=== PATIENT | female | born 1940 | race Caucasian/White ===

== ENCOUNTER 2025-02-24 15:04 | Outpatient (REF) | payer SELFPAY ==
--- OUTSIDE RECORDS SUMMARY | 2011-04-04 06:44 | XMS_ITS | Continuity of Care Document ---
Author Organization [facility] Address [address] [address] [place] [address] Phone Care Team Providers Care Prestressed Concrete Laborer Name Role Phone Unavailable Unavailable Unavailable Advance Directives Directive Yes / No Effective Date File Name No Information Encounters Encounter Description Practice Location Reason(s) For Visit Diagnoses Date Provider Providers Copied on Encounter [facility], [address] [address], [place], [place], [id number], tel:[phone] [facility] No Information No Information Referring Provider: Louis Zayas MD R, [address] [place], [address]. tel:[phone] Family History Family Member Type Diagnosis Age At Onset No Information Payers Payer name Insurance type Covered democrat ID Authoriza tion(s) No Information Social History [...]
[2025-02-24 15:44] LABS: Appearance Urine Slightly Cloudy (Clear)
== END 2025-02-24 15:05 | disposition home or self-care (01) ==
LOC: NPINS 15:04
PROVIDERS: PCP Family Medicine; Visit Provider Nurse Practitioner Gerontology
DX: N39.0 Urinary tract infection, site not specified (principal)
CPT/HCPCS: 81001; 81003; 87086

== ENCOUNTER 2025-04-25 13:10 | Outpatient (REF) | payer SELFPAY ==
--- OUTSIDE RECORDS SUMMARY | 2011-04-04 05:44 | XMS_ITS | Continuity of Care Document ---
Author Organization [facility] Address [address] [address] [place] [address] Phone Care Team Providers Care Superintendent Nonselling Name Role Phone Unavailable Unavailable Unavailable Advance Directives Directive Yes / No Effective Date File Name No Information Encounters Encounter Description Practice Location Reason(s) For Visit Diagnoses Date Provider Providers Copied on Encounter [facility], [address] [address], [place], [place], [id number], tel:[phone] [facility] No Information No Information Referring Provider: Louis Zayas MD [address], [address] [place], [address]. tel:[phone] Family History Family Member Type Diagnosis Age [...]
[2025-04-25 14:52] LABS: PCR FLU A Negative PCR FLU A (Negative); PCR FLU B Negative PCR FLU B (Negative); PCR RSV Negative PCR RSV (Negative); SARS PCR* Negative SARS-CoV-2 (Negative)
== END 2025-04-25 13:11 | disposition home or self-care (01) ==
LOC: NPINS 13:10
PROVIDERS: PCP Family Medicine; Visit Provider Nurse Practitioner Gerontology
DX: J11.1 Influenza due to unidentified influenza virus with other respiratory manifestations (principal)
CPT/HCPCS: 87631; 87804; 87807

== ENCOUNTER 2025-04-26 12:45 | Outpatient (CLI) | payer MEDICARE, BC, SELFPAY | END 2025-04-26 12:46 | disposition home or self-care (01) | LOC: AMB 04-30 13:51 | PROVIDERS: PCP Family Medicine; Visit Provider Family Medicine | DX: R11.2 Nausea with vomiting, unspecified (principal) | CPT/HCPCS: A0425; A0429 ==

== ENCOUNTER 2025-04-26 13:06 | Inpatient (IN) | payer MEDICARE, BC, SELFPAY ==
--- OUTSIDE RECORDS SUMMARY | 2011-04-04 05:44 | XMS_ITS | Continuity of Care Document ---
Author Organization [facility] Address [address] [address] [place] [address] Phone Care Team Providers Care Contract Assistant Name Role Phone Unavailable Unavailable Unavailable Advance Directives Directive Yes / No Effective Date File Name No Information Encounters Encounter Description Practice Location Reason(s) For Visit Diagnoses Date Provider Providers Copied on Encounter [facility], [address] [address], [place], [place], [id number], tel:[phone] [facility] No Information No Information Referring Provider: Louis Zayas MD R, [address] [place], [address]. tel:[phone] Family History Family Member Type Diagnosis Age At Onset No Information Payers Payer name Insurance type Covered republican ID Authoriza tion(s) No Information Social History Type Description Quantity Date Captured Comments Sex Female Smoking Status No Information Chief Complaint And Reason For Visit No Information Reason For Referral Reason For Referral No Information History Of Present Illness Encounter Date Complaint History Of Prese nt Illness No Information Functional Status Date Functional Assessmen t No Information Instructions Date Instruction Additional Infor mation No Information Assessments Type Assessment Date No Information Patient Care Teams Name Effective Dates (start - stop) Status Members No Information
[2025-04-26] VITALS (37 sets, daily range): BP systolic 139–163; BP diastolic 72–84; PULSE 118–133; RESP 13–57; TEMP 36.8–37.2; O2SAT 79–100; BMI 25.5; BMI 23.6
--- NOTE | 2025-04-26 13:24 | ED_ITS ---
HPI - General Adult General Chief complaint: Nausea/Vomiting Stated complaint: Nausea/Vomiting Time Seen by Provider: 04/26/25 13:16 History of Present Illness HPI narrative: pt. stayed in bed since Friday. Today providers saw her and asked that she be transported to us for concerns of dehydration and infection. she has had n /v since Friday . Last emesis at 0900. Pt. is also weaker than usual. Son will be here at 4pm. Pt, has a polst . She fesused an iv and fluids for ems and now she is agreeable 84-year-old woman presenting to the emergency department with concern of dehydration and infection. She is not sure why she is here actually when I ask. Just does not feel good. Denies any pain until I palpate her abdomen. Has been vomiting. No noted diarrhea. She is noted to be more weak. Four days of symptoms. 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 Was to be on dual antiplatelet therapy. Was rehabbed at [facility] from January 27 to February 17. Struggled with intermittent agitation aggression during that time. Son reports that this agitation and aggression worsened markedly since her CVA. 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 Pantoprazole Acetaminophen Senna Levothyroxine Rosuvastatin Tramadol Sitagliptin Aspirin Nicotine patch Sertraline Donepezil Mirtazapine Melatonin Tramadol I see clopidogrel on 1 medication list but not on the other Exam Narrative: Exam Narrative: Intermittently pleasant. Intermittently quite disagreeable and cursing and striking out. Appears to forget after about 2-3 minutes repeatedly. She does have some congested breathing. Moderately labored. Moving good air. No wheeze. Oropharynx and lips are quite dry. Abdomen is soft and extremely tender in the mid abdomen which seems to be a surprise to her. She has large surgical scars abdomen. Bowel sounds are present. Heart in tachycardic rate and regular rhythm I think. Limited movement to bilateral lower extremities. Trace non pitting edema. Roshni did report to her son that she had had a bowel movement. We took this is an opportunity to examine her back and buttock area. There was no bowel movement. There was barrier cream in place. Moderate erythema broadly over the perianal and perineal area. No ulcerations noted. Const: Vital Signs, click to edit/add: Vital Signs - 24 hr 04/26/25 13:11 04/26/25 13:12 04/26/25 13:13 Temperature 98.9 F Pulse Rate 133 H 129 H Pulse Rate [Right Radial] 125 H Respiratory Rate 32 H 22 24 Blood Pressure 161/79 H Blood Pressure [Ri ght Upper Arm] 161/79 H Pulse Oximetry 94 92 93 Oxygen Delivery Me od Room Air 04/26/25 13:15 04/26/25 13:30 04/26/25 13:45 Temperature Pulse Rate 130 H 121 H Pulse Rate [Right Radial] Respiratory Rate 18 21 22 Blood Pressure Blood Pressure [Ri ght Upper Arm] Pulse Oximetry 93 79 L 87 L Oxygen Delivery Ri thod 04/26/25 13:55 04/26/25 14:00 04/26/25 14:15 Temperature Pulse Rate 129 H Pulse Rate [Right Radial] Respiratory Rate 26 H 32 H Blood Pressure Blood Pressure [Ri ght Upper Arm] Pulse Oximetry 91 89 Oxygen Delivery Ri thod 04/26/25 14:27 04/26/25 14:30 04/26/25 14:45 Temperature Pulse Rate Pulse Rate [Right Radial] Respiratory Rate 15 24 21 Blood Pressure 146/77 H Blood Pressure [Ri ght Upper Arm] Pulse Oximetry Oxygen Delivery Me thod 04/26/25 15:00 04/26/25 15:15 04/26/25 15:30 Temperature Pulse Rate 128 H Pulse Rate [Right Radial] Respiratory Rate 23 13 28 H Blood Pressure Blood Pressure [Ri ght Upper Arm] Pulse Oximetry 97 Oxygen Delivery Me thod 04/26/25 15:45 04/26/25 16:00 04/26/25 16:15 Temperature Pulse Rate 129 H Pulse Rate [Right Radial] Respiratory Rate 30 H 31 H 18 Blood Pressure Blood Pressure [Ri ght Upper Arm] Pulse Oximetry 96 Oxygen Delivery Me thod 04/26/25 16:30 04/26/25 16:45 04/26/25 17:00 Temperature Pulse Rate Pulse Rate [Right Radial] Respiratory Rate 13 25 H 22 Blood Pressure Blood Pressure [Ri ght Upper Arm] Pulse Oximetry Oxygen Delivery Me thod 04/26/25 17:15 04/26/25 17:30 04/26/25 17:31 Temperature Pulse Rate Pulse Rate [Right Radial] Respiratory Rate 20 20 20 Blood Pressure 163/84 H Blood Pressure [Ri ght Upper Arm] Pulse Oximetry Oxygen Delivery Me thod 04/26/25 18:15 04/26/25 18:30 04/26/25 18:47 Temperature Pulse Rate 122 H 122 H 119 H Pulse Rate [Right Radial] Respiratory Rate 36 H 18 25 H Blood Pressure Blood Pressure [Ri ght Upper Arm] Pulse Oximetry 98 95 93 Oxygen Delivery Me thod 04/26/25 19:00 04/26/25 19:15 04/26/25 19:30 Temperature Pulse Rate 118 H 122 H 123 H Pulse Rate [Right Radial] Respiratory Rate 19 24 57 H Blood Pressure Blood Pressure [Ri ght Upper Arm] Pulse Oximetry 91 95 93 Oxygen Delivery Me thod 04/26/25 19:45 04/26/25 20:41 04/26/25 21:00 Temperature Pulse Rate 126 H 123 H 122 H Pulse Rate [Right Radial] Respiratory Rate 19 19 20 Blood Pressure 139/72 Blood Pressure [Ri ght Upper Arm] Pulse Oximetry 95 94 94 Oxygen Delivery Me thod 04/26/25 21:15 04/26/25 21:30 04/26/25 22:00 Temperature Pulse Rate 122 H 122 H 119 H Pulse Rate [Right Radial] Respiratory Rate 14 14 18 Blood Pressure Blood Pressure [Ri ght Upper Arm] Pulse Oximetry 97 95 100 Oxygen Delivery Me thod Documenting provider has reviewed patient's vital signs: yes Course Vital Signs Vital signs: Initial Vital Signs Temperature 98.9 F 04/26/25 13:11 Temperature Source Temporal Artery Scan 04/26/25 13:11 Pulse Rate 125 H 04/26/25 13:11 Pulse Rhythm Regular 04/26/25 13:11 Respiratory Rate 32 H 04/26/25 13:11 Blood Pressure 161/79 H 04/26/25 13:11 Blood Pressure Mean 106 H 04/26/25 13:11 Pulse Oximetry 94 04/26/25 13:11 Oxygen Delivery Method Room Air 04/26/25 13:11 Vital Signs Temperature 98.9 F 04/26/25 13:11 Pulse Rate 125 H 04/26/25 13:11 Respiratory Rate 32 H 04/26/25 13:11 Blood Pressure 161/79 H 04/26/25 13:11 Pulse Oximetry 94 04/26/25 13:11 Oxygen Delivery Method Room Air 04/26/25 13:11 Temperature 98.9 F 04/26/25 13:11 Pulse Rate 119 H 04/26/25 22:00 Respiratory Rate 18 04/26/25 22:00 Blood Pressure 139/72 04/26/25 20:41 Pulse Oximetry 100 04/26/25 22:00 Oxygen Delivery Method Room Air 04/26/25 13:11 Medications Administered Medications: Generic Name Dose Route Start Last Admin Trade Name Freq PRN Reason Stop Dose Admin Meropenem 1 gm/ Sodium 100 mls @ 200 mls/hr 04/26/25 21:06 04/26/25 22:05 Chloride IVPB 04/26/25 21:07 Infused ONCE ONE Infusion Discontinued Medications Generic Name Dose Route Start Last Admin Trade Name Freq PRN Reason Stop Dose Admin Diazepam 5 mg 04/26/25 16:00 04/26/25 16:07 Diazepam 5 Mg/Ml Inj IM 04/26/25 16:01 5 mg ONCE ONE Administration Sodium Chloride 1,000 mls @ 1,000 mls/hr 04/26/25 13:48 04/26/25 18:35 0.9 % Sodium Chloride 1000 Ml IV 04/26/25 14:47 Infused .Q1H ONE Infusion Sodium Chloride 1,000 mls @ 1,000 mls/hr 04/26/25 19:51 04/26/25 20:37 0.9 % Sodium Chloride 1000 Ml IV 04/26/25 20:50 1,000 mls/hr .Q1H ONE Administration Morphine Sulfate 2 mg 04/26/25 13:48 04/26/25 17:47 Morphine 2 Mg/Ml Inj IVP 04/26/25 13:49 2 mg ONCE ONE Administration Ondansetron HCl 4 mg 04/26/25 13:55 04/26/25 17:27 Ondansetron 2 Mg/Ml Inj IVP 04/26/25 13:56 4 mg ONCE ONE Administration Medical Decision Making MDM Narrative Medical decision making narrative: Does appear quite fatigued and I think dry. Understand that there is a history of systolic heart failure but I do think she is going to need some fluids regardless. She is tachycardic. This may represent sepsis. Density abdominal pain along with vomiting and in lieu of visible scars, would have concerns about small-bowel obstruction. May have aspirated and I would anticipate chest x-ray. Significant difficulty given dementia and agitation, striking out and swearing at staff, including attempting to bite me, and I think dry state challenging placement of an IV and to obtain labs. This also has delayed other cares. Will also need abdominal imaging at a minimum. Pending creatinine to receive IV contrast. Which is pending IV placement I did discuss with son as he is power of stationary engineer apprentice about sedation. We did give 5 mg of diazepam which, in addition to Anesthesia assistance, finally allowed for placement of a tentative IV. Were not able to draw blood off of this. Hydrating with the hope of placing another IV. One-view portable chest x-ray independently reviewed by me is without clear infiltrate though looks a little hazy in the left lower lung. Radiology over-read below suggest no pneumonia. INDICATION: : CHEST CONGESTION COMPARISON: None TECHNIQUE: One view(s) of the chest FINDINGS: The cardiomediastinal silhouette and pulmonary vasculature are unremarkable. There is no focal airspace consolidation, pleural effusion, or pneumothorax. No displaced fractures. IMPRESSION: No acute cardiopulmonary process. Dictated by Sanjiv Miguel MD @ 04/26/2025 3:17:14 PM In the interest of time finally decided to proceed with CT imaging without contrast. INDICATION: Mid abdominal pain, vomiting TECHNIQUE: CT chest, abdomen and pelvis acquired without contrast. COMPARISON: Same day chest radiograph. FINDINGS: CHEST: Cardiovascular structures: Heart size is normal. Thoracic aorta and main pulmonary artery are normal in caliber. Severe coronary artery calcifications. Mitral annular calcifications. Diffuse atherosclerotic calcification of the aorta and branches. Mediastinum and mirela: No mass or adenopathy. Prominent precarinal lymph node, possibly reactive. Lungs and pleura: Scattered pulmonary nodules are present, including a solid subpleural nodule in the anterior left upper lobe measuring 4 millimeters in size (series 3, image 29). Subpleural reticulation is present bilaterally, possibly reflecting underlying fibrosis. Dependent atelectasis. No pleural effusion or pneumothorax. Chest wall and axilla: No mass or adenopathy. Bones: No acute or suspicious osseous abnormality. ABDOMEN AND PELVIS: Liver: Unremarkable. Gallbladder and bile ducts: Prior cholecystectomy. Prominent extrahepatic bile ducts likely secondary to post cholecystectomy reservoir effect. Pancreas: Mild fatty infiltration. No peripancreatic inflammation. Spleen: Nonenlarged. Probable calcified granulomas. Adrenal glands: Thickened left adrenal gland without discrete nodule. Kidneys: Mildly atrophic in appearance. No hydronephrosis. GI tract: Multiple mildly prominent gas and fluid-filled loops of small bowel are present. There are fecalized contents within several loops of small bowel. No transition point seen. Colonic diverticulosis without acute diverticulitis. Vascular structures: Ectasia of the infrarenal abdominal aorta measuring approximally 2.7 centimeters in maximum dimension. Diffuse atherosclerotic disease. Lymph nodes: Unremarkable. Miscellaneous: Moderate-sized fat containing umbilical hernia. Soft tissue calcifications along the lower anterior abdominal wall and within the right gluteal subcutaneous tissues. No free air or significant free fluid. Pelvic Organs: Left bladder diverticulum. Bones: No acute or suspicious osseous abnormality. IMPRESSION: 1. Multiple prominent loops of small bowel are present, nondilated by size criteria and without evident transition point. Fecalized contents are present within a few small bowel loops consistent with slow intestinal transit. Findings may reflect ileus, but early partial small bowel obstruction is not excluded. 2. Incidental pulmonary nodules measuring up to 4 millimeters in size, which could be followed with optional CT chest without contrast in 12 months if the patient is at high risk of malignancy. Please note that all CT scans at this facility use dose modulation, iterative reconstruction, and/or weight-based dosing when appropriate to reduce radiation dose to as low as reasonably achievable. Dictated by Erica Berumen MD @ 04/26/2025 7:13:53 PM Later I received labs that were look like done earlier today with a white count of 29,000. Creatinine of 2.6 Lactate done here today along with this white count earlier today and the tachycardia would meet sepsis criteria. There was report of a urinalysis that had been done but have not been able to locate this yet. Will be catheterizing. Roshni will not allow maintenance of urinary catheter or NG tube if necessary. Meningitis also is in differential as source however I suspect would require heavy sedation to accomplish tap. Probably better to consider treating empirically. Not complaining of headache and tolerates sitting and movement of neck. Still no source of suspected infection. With tentative line and desire yet to start antibiotics I'd like to consider placing a 2nd line. Son notes allergy to penicillin. With add on after re draws of blood, troponin does return elevated at 0.32. Partial demand ischemia? Remains with good blood pressures and tachycardic. She has not demonstrated septic shock. Would qualify actually as severe sepsis in spite of chronically elevated creatinine; was initially tachypneic. Ischemic gut? though with minimal lactate elevation and relatively normal bicarb. Have requested more fluids however son is resistant to this since Roshni does have a diagnosis of heart failure. I think however though remains dry and sepsis still the concern. No prior ECHO available now. On reassessment is much more calm. Heart rate now in the 1 teens. She is breathing more calmly. Is more persistently pleasant. I think IV hydration and combination diazepam and morphine has been quite helpful. Did discuss with hospitalist as well as General surgery anticipating potential admission. Clearly is very sick. If surgery is still a consideration would need transfer. I have spent a long time discussing options of care with Roshni and her son. They maintain DNR/DNI and limited interventions. Uncertain interest in surgery. Would not want any cardiac interventions. Roshni has told her son that she would like to recently. Records from [facility] indicate significant frustration, disappointment with current life. I spoke again with beck Trejo over the phone, and in person with grandbeck Mark and with Roshni. She is quite lucid I think right now and is quite insistent that she would not want any surgical intervention of any kind; answers no repeatedly. Is not interested in aggressive measures like pressors is my understanding but would except IV antibiotics and fluids and pain medication. Son is returning for in person discussion. Sat down with beck Trejo and Roshni and hospitalist to confirm desired limits of care. Will continue with IV fluids and antibiotics and, what is particularly important to Roshni, that she be comfortable. Pending admission to this facility. Medical Records Medical records reviewed: Yes I reviewed the patient's medical records Lab Data Lab results reviewed: Yes I reviewed the patient's lab results Labs: Lab Results 04/26/25 04/26/25 04/26/25 Range/Units 17:26 19:20 19:38 WBC 28.64 H* (4.50-11.00) K/uL RBC 4.03 (4.00-5.20) m/uL Hgb 13.0 (12.0-16.0) gm/dL Hct 40.2 (33.0-51.0) % MCV 100 (80-100) fL MCH 32 (26-34) pg MCHC 32 (32-36) gm/dL RDW Coeff of Dipti 18.1 H (11.5-15.5) % Plt Count 371 (140-440) K/uL Neut % (Auto) 86.3 H (42.0-72.0) % Lymph % (Auto) 7.3 L (20-44) % [place] % (Auto) 5.3 (0.0-11.0) % Eos % (Auto) 0.0 (0.0-7.0) % Baso % (Auto) 0.0 (0.0-3.0) % Neut # (Auto) 24.70 H (1.7-7.0) K/uL Lymph # (Auto) 2.10 (0.90-2.90) K/uL [place] # (Auto) 1.50 H (0.00-0.90) K/UL Eos # (Auto) 0.00 (0.00-0.50) K/uL Baso # (Auto) 0.00 (0.00-0.30) K/uL Abs Immat Gran (auto) 0.30 (0.00-0.30) K/uL Imm/Tot Granulo (auto) 1.1 % Diff Slide Review Acceptable Review (Acceptable) VBG pH 7.355 (7.32-7.43) VBG pCO2 31 L (40-50) mmHG VBG pO2 44.6 (25-47) mmHG VBG HCO3 17 L (21-28) mmol/L Sodium 142 (135-149) mmol/L Potassium 5.1 (3.6-5.1) mmol/L Chloride 111 (96-114) mmol/L Carbon Dioxide 16 L (20-32) mmol/L Anion Gap 15 (7-15) mEq/L BUN 48 H (7-30) mg/dL Creatinine 2.5 H (0.5-1.5) mg/dL Estimated Creat Clear 12.64 Estimated GFR 19 ml/min Glucose 129 H (60-115) mg/dL Lactate 2.3 H (0.5-1.9) mmol/L Calcium 9.0 (8.4-10.6) mg/dL Troponin I 0.32 H* (0.01-0.04) ng/mL C-Reactive Protein 20.3 H (0.5-1.0) mg/dL Urine Color Yellow (Yellow) Urine Appearance Clear (Clear) Urine pH 5.0 (5.0-8.5) Ur Specific [place] >= 1.030 (1.000-1.030) Urine Protein 1+ A (Negative) Urine Glucose (UA) Negative (Negative) Urine Ketones Negative (Negative) Urine Blood Negative (Negative) Urine Nitrite Negative (Negative) Urine Bilirubin 1+ A (Negative) Urine Urobilinogen 0.2 (0.2-1.0) Ur Leukocyte Esterase Negative (Negative) Urine RBC 2-5 A (0-2) Urine WBC 2-5 (0-5) Ur Squamous Epith Cells Few (None-Few) Urine Bacteria Moderate A (None) SARS-CoV-2 (PCR) (Negative) Influenza Type A (PCR) (Negative) Influenza Type B (PCR) (Negative) RSV (PCR) (Negative) Lab Acknowledgement 04/26/25 04/26/25 04/26/25 Range/Units 19:50 20:27 21:15 WBC (4.50-11.00) K/uL RBC (4.00-5.20) m/uL Hgb (12.0-16.0) gm/dL Hct (33.0-51.0) % MCV (80-100) fL MCH (26-34) pg MCHC (32-36) gm/dL RDW Coeff of Dipti (11.5-15.5) % Plt Count (140-440) K/uL Neut % (Auto) (42.0-72.0) % Lymph % (Auto) (20-44) % [place] % (Auto) (0.0-11.0) % Eos % (Auto) (0.0-7.0) % Baso % (Auto) (0.0-3.0) % Neut # (Auto) (1.7-7.0) K/uL Lymph # (Auto) (0.90-2.90) K/uL [place] # (Auto) (0.00-0.90) K/UL Eos # (Auto) (0.00-0.50) K/uL Baso # (Auto) (0.00-0.30) K/uL Abs Immat Gran (auto) (0.00-0.30) K/uL Imm/Tot Granulo (auto) % Diff Slide Review (Acceptable) VBG pH (7.32-7.43) VBG pCO2 (40-50) mmHG VBG pO2 (25-47) mmHG VBG HCO3 (21-28) mmol/L Sodium (135-149) mmol/L Potassium (3.6-5.1) mmol/L Chloride (96-114) mmol/L Carbon Dioxide (20-32) mmol/L Anion Gap (7-15) mEq/L BUN (7-30) mg/dL Creatinine (0.5-1.5) mg/dL Estimated Creat Clear Estimated GFR ml/min Glucose (60-115) mg/dL Lactate 1.3 (0.5-1.9) mmol/L Calcium (8.4-10.6) mg/dL Troponin I 0.33 H* (0.01-0.04) ng/mL C-Reactive Protein (0.5-1.0) mg/dL Urine Color (Yellow) Urine Appearance (Clear) Urine pH (5.0-8.5) Ur Specific [place] (1.000-1.030) Urine Protein (Negative) Urine Glucose (UA) (Negative) Urine Ketones (Negative) Urine Blood (Negative) Urine Nitrite (Negative) Urine Bilirubin (Negative) Urine Urobilinogen (0.2-1.0) Ur Leukocyte Esterase (Negative) Urine RBC (0-2) Urine WBC (0-5) Ur Squamous Epith Cells (None-Few) Urine Bacteria (None) SARS-CoV-2 (PCR) Negative SARS-CoV-2 (Negative) Influenza Type A (PCR) Negative PCR FLU A (Negative) Influenza Type B (PCR) Negative PCR FLU B (Negative) RSV (PCR) Negative PCR RSV (Negative) Lab Acknowledgement Test Added ECG Data Attestation: I personally reviewed and interpreted this ECG as follows: (Sinus tachycardia. Rate of 129. Leads [address] depression. Lateral leads V5 and V6 with similar. No prior for comparison.) Critical Care Time Critical Care Time Critical Care Time: Yes Attestation: The patient required my highest level preparedness to intervene emergently and I personally spent this critical care time directly and personally managing the patient. This critical care time included: Obtaining a history; Examining the patient; Pulse oximetry; Ordering and reviewing of studies; Arranging urgent treatment with development of a management plan; Evaluation of patients response to treatment; Frequent reassessment discussions with other providers. This critical care time was performed to assess and manage the high probability of imminent life-threatening deterioration that could result in multiorgan failure. It was exclusive of separate billable procedures and treating other patients and teaching time. Total Critical Care Time in Minutes: 120 Discharge Plan Discharge Clinical Impression: Sepsis, Acute abdomen Patient Disposition: Admitted As Inpatient Condition: Guarded Procedures ABG Interpretation ABG Results: 04/26/25 17:26 VBG pH 7.355 VBG pCO2 31 L VBG pO2 44.6 VBG HCO3 17 L
--- NOTE | 2025-04-26 13:48 | CRLHL7_ITS ---
For Patients: As a result of the Cures Act, medical imaging exams and procedure reports are released immediately into your electronic medical record. You may view this report before your referring provider. If you have questions, please contact your health care provider. INDICATION: : CHEST CONGESTION COMPARISON: None TECHNIQUE: One view(s) of the chest FINDINGS: The cardiomediastinal silhouette and pulmonary vasculature are unremarkable. There is no focal airspace consolidation, pleural effusion, or pneumothorax. No displaced fractures. IMPRESSION: No acute cardiopulmonary process. Dictated by Sanjiv Miguel MD @ 04/26/2025 3:17:14 PM (Electronically Signed)
--- NOTE | 2025-04-26 13:48 | CRLHL7_ITS ---
For Patients: As a result of the Century Cures Act, medical imaging exams and procedure reports are released immediately into your electronic medical record. You may view this report before your referring provider. If you have questions, please contact your health care provider. INDICATION: Mid abdominal pain, vomiting TECHNIQUE: CT chest, abdomen and pelvis acquired without contrast. COMPARISON: Same day chest radiograph. FINDINGS: CHEST: Cardiovascular structures: Heart size is normal. Thoracic aorta and main pulmonary artery are normal in caliber. Severe coronary artery calcifications. Mitral annular calcifications. Diffuse atherosclerotic calcification of the aorta and branches. Mediastinum and mirela: No mass or adenopathy. Prominent precarinal lymph node, possibly reactive. Lungs and pleura: Scattered pulmonary nodules are present, including a solid subpleural nodule in the anterior left upper lobe measuring 4 millimeters in size (series 3, image 29). Subpleural reticulation is present bilaterally, possibly reflecting underlying fibrosis. Dependent atelectasis. No pleural effusion or pneumothorax. Chest wall and axilla: No mass or adenopathy. Bones: No acute or suspicious osseous abnormality. ABDOMEN AND PELVIS: Liver: Unremarkable. Gallbladder and bile ducts: Prior cholecystectomy. Prominent extrahepatic bile ducts likely secondary to post cholecystectomy reservoir effect. Pancreas: Mild fatty infiltration. No peripancreatic inflammation. Spleen: Nonenlarged. Probable calcified granulomas. Adrenal glands: Thickened left adrenal gland without discrete nodule. Kidneys: Mildly atrophic in appearance. No hydronephrosis. GI tract: Multiple mildly prominent gas and fluid-filled loops of small bowel are present. There are fecalized contents within several loops of small bowel. No transition point seen. Colonic diverticulosis without acute diverticulitis. Vascular structures: Ectasia of the infrarenal abdominal aorta measuring approximally 2.7 centimeters in maximum dimension. Diffuse atherosclerotic disease. Lymph nodes: Unremarkable. Miscellaneous: Moderate-sized fat containing umbilical hernia. Soft tissue calcifications along the lower anterior abdominal wall and within the right gluteal subcutaneous tissues. No free air or significant free fluid. Pelvic Organs: Left bladder diverticulum. Bones: No acute or suspicious osseous abnormality. IMPRESSION: 1. Multiple prominent loops of small bowel are present, nondilated by size criteria and without evident transition point. Fecalized contents are present within a few small bowel loops consistent with slow intestinal transit. Findings may reflect ileus, but early partial small bowel obstruction is not excluded. 2. Incidental pulmonary nodules measuring up to 4 millimeters in size, which could be followed with optional CT chest without contrast in 12 months if the patient is at high risk of malignancy. Please note that all CT scans at this facility use dose modulation, iterative reconstruction, and/or weight-based dosing when appropriate to reduce radiation dose to as low as reasonably achievable. Dictated by Erica Berumen MD @ 04/26/2025 7:13:53 PM (Electronically Signed)
[2025-04-26] MEDS: diazePAM 5 MG/ML inj IM (16:07)
[2025-04-26] MEDS: ONDANSETRON 2 MG/ML inj 4 MG IVP (17:27)
[2025-04-26 17:31] LABS: HCO3 VBG 17 mmol/L (21-28); PCO2 VBG 31 mmHG (40-50); PO2 VBG 44.6 mmHG (25-47); pH VBG 7.355 (7.32-7.43)
[2025-04-26 17:33] LABS: Lactate* 2.3 mmol/L (0.5-1.9)
[2025-04-26 18:24] LABS: Chloride* 111 mmol/L (96-114)
[2025-04-26 18:25] LABS: Potassium* 5.1 mmol/L (3.6-5.1); Sodium* 142 mmol/L (135-149)
[2025-04-26 18:28] LABS: Anion Gap 15 mEq/L (7-15); Blood Urea Nitrogen* 48 mg/dL (7-30); Calcium* 9.0 mg/dL (8.4-10.6); Carbon Dioxide* 16 mmol/L (20-32); Creatinine* 2.5 mg/dL (0.5-1.5); Est. Creatinine Clearance* 12.64; Estimated Glomerular Filt Rate 19 ml/min; Glucose* 129 mg/dL (60-115)
[2025-04-26 19:41] LABS: Hematocrit* 40.2 % (33.0-51.0); Hemoglobin* 13.0 gm/dL (12.0-16.0); Immature Granulocytes Abs Auto 0.30 K/uL (0.00-0.30); Immature Granulocytes Pct Auto 1.1 %; Lymphocytes Absolute Auto 2.10 K/uL (0.90-2.90); Mean Corpuscular HGB Conc 32 gm/dL (32-36); Mean Corpuscular Hemoglobin 32 pg (26-34); Mean Corpuscular Volume 100 fL (80-100); RDW Coefficient of Variation % 18.1 % (11.5-15.5); Red Blood Count* 4.03 m/uL (4.00-5.20); Slide Review Reflex Yes
[2025-04-26 19:42] LABS: Appearance Urine Clear (Clear)
[2025-04-26 19:42] LABS: White Blood Count* 28.64 K/uL (4.50-11.00)
[2025-04-26 20:20] LABS: Slide Review Acceptable Review (Acceptable)
[2025-04-26 21:18] LABS: Lactate* 1.3 mmol/L (0.5-1.9)
[2025-04-26] MEDS: MEROPENEM 1 GM in 0.9 % SODIUM CHLORIDE Mini-bag 100 ML IVPB (21:29)
[2025-04-26 21:32] LABS: PCR FLU A Negative PCR FLU A (Negative); PCR FLU B Negative PCR FLU B (Negative); PCR RSV Negative PCR RSV (Negative); SARS PCR* Negative SARS-CoV-2 (Negative)
--- NOTE | 2025-04-26 23:01 | P.IMHP_ITS ---
Assessment and Plan Assessment and plan (1) Sepsis: Problem comment: -leukocytosis with left shift, WBC 28.64, lactate 2.3 -> 1.3 following IVF, tachycardic, tachypneic, afebrile -suspect acute abdomen as source -CT/CXR without evidence of acute pulmonary process, triple swab negative, UA rather unremarkable, UC pending, BC x1 pending -son and patient have elected to continue IV antibiotics, IVF, pain management, monitoring for improvement, may elect to proceed with comfort cares if no impr ovement or worsening -no pressors or ICU level cares desired. Only have one peripheral hand IV after several attempts at others Status: Acute (2) Acute abdomen: Problem comment: -abdominal pain with nausea and vomiting for 4-5 days -CT shows Multiple prominent loops of small bowel are present, nondilated by size criteria and without evident transition point. Fecalized contents are present within a few small bowel loops consistent with slow intestinal transit. Findings may reflect ileus, but early partial small bowel obstruction is not excluded -leukocytosis with left shift, elevated CRP -discussed with General surgery, recommending transfer if surgical intervention desired by patient and family -discussion with patient, son, Neil, ED provider, Dr. Rajan, all in attendance. Patient verbalizes she would not want surgical intervention. Son verbalizes that she has said this in the past as well and confirms she would not want surgery. Discussed management options including admission for IV antibiotics, IV fluids, bowel rest, monitoring for new or worsening symptoms. Son and patient in agreement. If new or worsening symptoms, as discussed, we would consider proceeding with comfort cares -general surgery consult in a.m., Dr. Alonzo aware Status: Acute (3) Vomiting: Problem comment: -reported last episode 0900 04/26 Status: Acute (4) CKD stage 3b, GFR 30-44 ml/min: Problem comment: -baseline creatinine based on limited EMR data, 1.3-1.4 Status: Acute (5) RC (acute kidney injury): Problem comment: -creatinine 2.5 -avoid nephrotoxic medications, renally dose IV antibiotics, continue IVF, rec heck in a.m. Status: Acute (6) Type 2 diabetes mellitus: Problem comment: -most recent A1c 5.7 -hold sitagliptin while NPO -glucose checks and insulin sliding scale ACHS Status: Acute (7) Hyperlipidemia: Problem comment: -hold statin for now Status: Acute (8) Hypertension: Problem comment: -pressure is adequate in setting of sepsis -hold home meds for now Status: Acute (9) Vascular dementia: Problem comment: -with increased agitation following CVA in January -continue home medications -Haldol p.r.n. Son, Neil, states patient has a POLST (reviewed) but no healthcare directive. We discussed that with her state of vascular dementia, as next of kin, he will need to help make decisions for her during this hospitalization as her understanding and comprehension as well as ability to retain the information t hat is provided to her is limited. He verbalizes understanding. As documented above, with myself and ED provider in attendance, plan is made for nonsurgical intervention, trial of IV antibiotics, monitoring, and possibly pursuing comfort cares if no improvement or worsening noted. Status: Acute (10) Systolic congestive heart failure: Problem comment: -monitor for fluid overload in management of sepsis Status: Acute (11) Elevated troponin: Problem comment: -troponin 0.33 -> 0.32 -has been tachycardic since arrival in ED, EKG showing sinus tachycardia -son wants no further cardiac interventions Status: Acute (12) Pulmonary nodules: Problem comment: -incidental finding, CT shows Incidental pulmonary nodules measuring up to 4 millimeters in size, which could be followed with optional CT chest without contrast in 12 months if the patient is at high risk of malignancy. Status: Acute Total Time Spent Total Time Spent: Today I spent 90 minutes seeing the patient, reviewing [facility] and EPIC notes /diagnostics, discussing the care plan with our care time that includes social work, PT/OT, pharmacy, RT, retirement and documenting my impressions and plan in the medical record. 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 Patient is seen in the ED with son and ED provider at bedside. Patient is a poor historian. Reported that patient has had nausea with vomiting and abdominal pain since Friday of last week. Last emesis was 9:00 a.m. this morning. Unknown last BM. No reported fevers. In ED, patient reported to be not fully cooperative. Has taken some time to get IV access, labs, initiation of IV fluids and antibiotics. Significant leukocytosis noted with questionable small-bowel obstruction. ED provider discussed with General surgery, concern for ischemia, significant bowel infection. Would recommend transfer for any sort of surgical intervention. In discussing options with son, he tells us his mother would have never wanted surgical intervention. When asked herself, she says ?no? to surgery. Decision is made for admission for IV antibiotics, IV fluids, bowel rest. We did discuss comfort cares if new or worsening symptoms which son is in agreement with if necessary. There is very limited EMR information available as son reports most of care has been done in the [facility] system. Outside resources are limited to information sent by [facility]. Review of Systems Narrative: REVIEW OF SYSTEMS: Complete review of systems performed and negative unless otherwise stated in HPI or below. Medical Decision Making Medical Decision Making Code Status: DNR/DNI During This Stay, Who Would You Like To Make Decisions For You In The Event You Are Unable To Make Them For Yourself?: Neil Bishop [facility] Medical History Asthma ?J45.909 - Unspecified asthma, uncomplicated (ICD-10) Systolic congestive heart failure ?I50.20 - Unspecified systolic (congestive) heart failure (ICD-10) Atherosclerotic heart disease of [place] coronary artery without angina pectoris ?I25.10 - Atherosclerotic heart disease of [place] coronary artery without angina pectoris (ICD-10) Nicotine dependence ?F17.200 - Nicotine dependence, unspecified, uncomplicated (ICD-10) Anemia ?D64.9 - Anemia, unspecified (ICD-10) Aphasia following cerebrovascular accident (CVA) ?I69.320 - Aphasia following cerebral infarction (ICD-10) Hemiplegia and hemiparesis following cerebral infarction affecting right dominant side ?I69.351 - Hemiplegia and hemiparesis following cerebral infarction affecting right dominant side (ICD-10) Vascular dementia ?F01.50 - Vascular dementia, unspecified severity, without behavioral disturbance, psychotic disturbance, mood disturbance, and anxiety (ICD-10) Sleep disorder ?G47.9 - Sleep disorder, unspecified (ICD-10) History of myocardial infarction ?I25.2 - Old myocardial infarction (ICD-10) Sjogrens syndrome ?M35.00 - Sjogren syndrome, unspecified (ICD-10) Hypertension ?I10 - Essential (primary) hypertension (ICD-10) Hyperlipidemia ?E78.5 - Hyperlipidemia, unspecified (ICD-10) Anxiety ?F41.9 - Anxiety disorder, unspecified (ICD-10) Type 2 diabetes mellitus ?E11.9 - Type 2 diabetes mellitus without complications (ICD-10) Hypothyroidism ?E03.9 - Hypothyroidism, unspecified (ICD-10) MDD (major depressive disorder) ?F32.9 - Major depressive disorder, single episode, unspecified (ICD-10) RC (acute kidney injury) ?N17.9 - Acute kidney failure, unspecified (ICD-10) CKD stage 3b, GFR 30-44 ml/min ?N18.32 - Chronic kidney disease, stage 3b (ICD-10) STEMI (ST elevation myocardial infarction) ?I21.3 - ST elevation (STEMI) myocardial infarction of unspecified site (ICD- 10) CVA (cerebral vascular accident) ?I63.9 - Cerebral infarction, unspecified (ICD-10) Meds Home Medications and Allergies Allergies Allergy/AdvReac Type Severity Reaction Status Date / Time atorvastatin Allergy Unknown Unverified 04/26/25 23:01 glipizide Allergy Unknown Unverified 04/26/25 23:01 latex Allergy Unknown Unverified 04/26/25 23:01 metronidazole (From Flagyl) Allergy Unknown Unverified 04/26/25 23:01 Penicillins Allergy Unknown Unverified 04/26/25 23:01 Sulfa (Sulfonamide Allergy Unknown Unverified 04/26/25 23:01 Antibiotics) adhesive tape AdvReac Unknown Unverified 04/26/25 23:01 dye Allergy Unknown Uncoded 04/26/25 23:01 Exam Narrative: Exam Narrative: PHYSICAL EXAM General: Anxious, suspicious, otherwise NAD HEENT: Normocephalic, atraumatic, sclera white, EOMI, oral mucosa moist Cardiovascular: Tachycardic,+ 1 pitting edema Pulmonary: CTA bilaterally without rhonchi, rales, expiratory wheezes. No dyspnea on room air Abdominal: Limited exam as patient uncooperative, yells out with soft palpation over mid abdomen Neurological: Alert, confused, repeating questions, easily agitated with repeat questions and peripheral noises Extremities: No gross joint deformity or swelling. AROMI. Skin: Warm, dry. Const: Vital Signs, click to edit/add: Vital Signs - 24 hr 04/26/25 13:11 04/26/25 13:12 04/26/25 13:13 Temperature 98.9 F Pulse Rate 133 H 129 H Pulse Rate [Right Radial] 125 H Respiratory Rate 32 H 22 24 Blood Pressure 161/79 H Blood Pressure [Ri ght Upper Arm] 161/79 H Pulse Oximetry 94 92 93 Oxygen Delivery Me od Room Air 04/26/25 13:15 04/26/25 13:30 04/26/25 13:45 Temperature Pulse Rate 130 H 121 H Pulse Rate [Right Radial] Respiratory Rate 18 21 22 Blood Pressure Blood Pressure [Ri ght Upper Arm] Pulse Oximetry 93 79 L [facility] 04[facility] 13:55 04/26/25 14:00 04/26/25 14:15 Temperature Pulse Rate 129 H Pulse Rate [Right Radial] Respiratory Rate 26 H 32 H Blood Pressure Blood Pressure [Ri ght Upper Arm] Pulse Oximetry 91 89 [facility] 04/26/25 14:27 04/26/25 14:30 04/26/25 14:45 Temperature Pulse Rate Pulse Rate [Right Radial] Respiratory Rate 15 24 21 Blood Pressure 146/77 H Blood Pressure [Ri ght Upper Arm] Pulse Oximetry Oxygen Delivery Ok thod 04/26/25 15:00 04/26/25 15:15 04/26/25 15:30 Temperature Pulse Rate 128 H Pulse Rate [Right Radial] Respiratory Rate 23 13 28 H Blood Pressure Blood Pressure [Ri ght Upper Arm] Pulse Oximetry 97 Oxygen Delivery Ok thod 04/26/25 15:45 04/26/25 16:00 04/26/25 16:15 Temperature Pulse Rate 129 H Pulse Rate [Right Radial] Respiratory Rate 30 H 31 H 18 Blood Pressure Blood Pressure [Ri ght Upper Arm] Pulse Oximetry 96 Oxygen Delivery Ok thod 04/26/25 16:30 04/26/25 16:45 04/26/25 17:00 Temperature Pulse Rate Pulse Rate [Right Radial] Respiratory Rate 13 25 H 22 Blood Pressure Blood Pressure [Ri ght Upper Arm] Pulse Oximetry Oxygen Delivery [facility] 04/26/25 17:15 04/26/25 17:30 04/26/25 17:31 Temperature Pulse Rate Pulse Rate [Right Radial] Respiratory Rate 20 20 20 Blood Pressure 163/84 H Blood Pressure [Ri ght Upper Arm] Pulse Oximetry Oxygen Delivery [facility] 04/26/25 18:15 04/26/25 18:30 04/26/25 18:47 Temperature Pulse Rate 122 H 122 H 119 H Pulse Rate [Right Radial] Respiratory Rate 36 H 18 25 H Blood Pressure Blood Pressure [Ri ght Upper Arm] Pulse Oximetry 98 95 93 Oxygen Delivery [facility] 04/26/25 19:00 04/26/25 19:15 04/26/25 19:30 Temperature Pulse Rate 118 H 122 H 123 H Pulse Rate [Right Radial] Respiratory Rate 19 24 57 H Blood Pressure Blood Pressure [Ri ght Upper Arm] Pulse Oximetry 91 95 93 Oxygen Delivery [facility] 04/26/25 19:45 04/26/25 20:41 04/26/25 21:00 Temperature Pulse Rate 126 H 123 H 122 H Pulse Rate [Right Radial] Respiratory Rate 19 19 20 Blood Pressure 139/72 Blood Pressure [Ri ght Upper Arm] Pulse Oximetry 95 94 94 Oxygen Delivery [facility] 04/26/25 21:15 04/26/25 21:30 04/26/25 22:00 Temperature Pulse Rate 122 H 122 H 119 H Pulse Rate [Right Radial] Respiratory Rate 14 14 18 Blood Pressure Blood Pressure [Ri ght Upper Arm] Pulse Oximetry 97 95 100 Oxygen Delivery [facility] Hospitalist - H&P: Result Labs Labs: Short CBC 04/26/25 Range/Units 19:20 WBC 28.64 H* (4.50-11.00) K/uL Hgb 13.0 (12.0-16.0) gm/dL Hct 40.2 (33.0-51.0) % Plt Count 371 (140-440) K/uL BMP 04/26/25 17:26 Sodium 142 Potassium 5.1 Chloride 111 Carbon Dioxide 16 L BUN 48 H Creatinine 2.5 H Glucose 129 H Calcium 9.0 Cardiac Enzymes 04/26/25 04/26/25 Range/Units 17:26 21:15 Troponin I 0.32 H* 0.33 H* (0.01-0.04) ng/mL Urine 04/26/25 Range/Units 19:38 Urine Color Yellow (Yellow) Urine Appearance Clear (Clear) Urine pH 5.0 (5.0-8.5) Ur Specific [place] >= 1.030 (1.000-1.030) Urine Protein 1+ A (Negative) Urine Glucose (UA) Negative (Negative) ECG Attestation: I personally reviewed and interpreted this ECG as follows: Interpretation: Sinus tachycardia Imaging Chest x-ray: Attestation: I have reviewed the pertinent imaging results. Radiologist's impression: The cardiomediastinal silhouette and pulmonary vasculature are unremarkable. There is no focal airspace consolidation, pleural effusion, or pneumothorax. No displaced fractures. IMPRESSION: No acute cardiopulmonary process. CT Chest/Ab/Pelvis: Attestation: I have reviewed the pertinent imaging results. Radiologist's impression: Cardiovascular structures: Heart size is normal. Thoracic aorta and main pulmonary artery are normal in caliber. Severe coronary artery calcifications. Mitral annular calcifications. Diffuse atherosclerotic calcification of the aorta and branches. Mediastinum and mirela: No mass or adenopathy. Prominent precarinal lymph node, possibly reactive. Lungs and pleura: Scattered pulmonary nodules are present, including a solid subpleural nodule in the anterior left upper lobe measuring 4 millimeters in size (series 3, image 29). Subpleural reticulation is present bilaterally, possibly reflecting underlying fibrosis. Dependent atelectasis. No pleural effusion or pneumothorax. Chest wall and axilla: No mass or adenopathy. Bones: No acute or suspicious osseous abnormality. ABDOMEN AND PELVIS: Liver: Unremarkable. Gallbladder and bile ducts: Prior cholecystectomy. Prominent extrahepatic bile ducts likely secondary to post cholecystectomy reservoir effect. Pancreas: Mild fatty infiltration. No peripancreatic inflammation. Spleen: Nonenlarged. Probable calcified granulomas. Adrenal glands: Thickened left adrenal gland without discrete nodule. Kidneys: Mildly atrophic in appearance. No hydronephrosis. GI tract: Multiple mildly prominent gas and fluid-filled loops of small bowel are present. There are fecalized contents within several loops of small bowel. No transition point seen. Colonic diverticulosis without acute diverticulitis. Vascular structures: Ectasia of the infrarenal abdominal aorta measuring approximally 2.7 centimeters in maximum dimension. Diffuse atherosclerotic disease. Lymph nodes: Unremarkable. Miscellaneous: Moderate-sized fat containing umbilical hernia. Soft tissue calcifications along the lower anterior abdominal wall and within the right gluteal subcutaneous tissues. No free air or significant free fluid. Pelvic Organs: Left bladder diverticulum. Bones: No acute or suspicious osseous abnormality. IMPRESSION: 1. Multiple prominent loops of small bowel are present, nondilated by size criteria and without evident transition point. Fecalized contents are present within a few small bowel loops consistent with slow intestinal transit. Findings may reflect ileus, but early partial small bowel obstruction is not excluded. 2. Incidental pulmonary nodules measuring up to 4 millimeters in size, which could be followed with optional CT chest without contrast in 12 months if the patient is at high risk of malignancy.
[2025-04-26] MEDS: VANCOMYCIN 1.25 GM/250 ML 1.25 GM/250 ML PIGGYBACK IVPB (23:03)
[2025-04-26 23:43] LABS: Albumin* 2.9 g/dL (3.3-5.0)
[2025-04-26 23:45] LABS: Alanine Aminotransferase* 17 U/L (4-35); Aspartate Amino Transferase* 86 U/L (12-35)
[2025-04-26 23:46] LABS: Alkaline Phosphatase* 78 U/L (40-150); Bilirubin Direct* 0.6 mg/dL (0.0-0.5); Bilirubin Total* 0.6 mg/dL (0.1-1.5); Total Protein* 6.3 g/dL (6.0-8.3)
[2025-04-27] VITALS (7 sets, daily range): BP systolic 124–142; BP diastolic 70–104; PULSE 95–120; RESP 16–20; TEMP 36.6–36.8; O2SAT 94–99; BMI 23.6
[2025-04-27] MEDS: ENOXAPARIN 30 MG/0.3ML INJ SUBCUT (00:59)
[2025-04-27] MEDS: SERTRALINE 50 MG TABLET PO ×2 (00:59→20:36)
[2025-04-27] MEDS: MIRTAZAPINE 15 MG TABLET PO ×2 (00:59→21:15)
[2025-04-27] MEDS: DONEPEZIL 5 MG TABLET PO ×2 (00:59→21:15)
[2025-04-27 06:29] LABS: HCO3 VBG 16 mmol/L (21-28); PCO2 VBG 33 mmHG (40-50); PO2 VBG 37.5 mmHG (25-47); pH VBG 7.274 (7.32-7.43)
[2025-04-27 06:30] LABS: Hematocrit* 32.4 % (33.0-51.0); Hemoglobin* 10.2 gm/dL (12.0-16.0); Mean Corpuscular HGB Conc 32 gm/dL (32-36); Mean Corpuscular Hemoglobin 32 pg (26-34); Mean Corpuscular Volume 103 fL (80-100); Red Blood Count* 3.16 m/uL (4.00-5.20)
[2025-04-27 06:43] LABS: Slide Review Reflex No; White Blood Count* 27.26 K/uL (4.50-11.00)
[2025-04-27 06:48] LABS: Chloride* 117 mmol/L (96-114)
[2025-04-27 06:49] LABS: Potassium* 4.0 mmol/L (3.6-5.1); Sodium* 143 mmol/L (135-149)
[2025-04-27 06:52] LABS: Anion Gap 11 mEq/L (7-15); Blood Urea Nitrogen* 48 mg/dL (7-30); Calcium* 7.5 mg/dL (8.4-10.6); Carbon Dioxide* 15 mmol/L (20-32); Creatinine* 2.3 mg/dL (0.5-1.5); Est. Creatinine Clearance* 13.74; Estimated Glomerular Filt Rate 20 ml/min; Glucose* 88 mg/dL (60-115)
--- NOTE | 2025-04-27 07:24 | PC.NURSE ---
Pt AOx4. Pt reports pain >4 throughout shift; managed by pain meds and ice- see EMAR. Pt reports ?not being able to move his legs.? Bilateral swelling and warmth of knees; active ice applied and elevated. Pt able to dorsiflex and extend ankles. SCDs tolerated intermittently. Pt demonstrates notable pain when being repositioned or moved by yelling out. Pt using urinal throughout HS. Pt encouraged to get up to AMB to BR and refuses due to inability to ?move his legs.? PA notified, PA in to visit w/ pt bedside this morning. New pain med and positioning orders provided; see EMAR.
--- NOTE | 2025-04-27 09:05 | PM.GSCN ---
History of Present Illness Consult details Date Seen: 04/27/25 Consult date: 04/27/25 Narrative: Roshni is an 84-year-old female with a recent history of a CVA with hemiparesis who presented to the emergency department with nausea, vomiting and abdominal pain for approximately 5 days prior to admission. She is currently residing at [facility]. She went there after being at rehab where she was not able to complete the required amount of therapy. Her son is with her today and states that she was 110% and living independently prior to her stroke. Labs were obtained showing a white blood cell count of 29. She was found to be acidotic with an elevated lactate and a decreased bicarb. She had a CT scan of the abdomen without contrast because of elevated creatinine in the setting of chronic kidney disease. This showed question of small-bowel obstruction versus slow transit with fecalization of small-bowel contents. Because of the findings of possible bowel obstruction in the setting of an elevated white blood cell count without other findings to support this such as pneumonia, C difficile colitis, there is concern for intra-abdominal pathology, specifically bowel ischemia. The patient and her family do not want surgical intervention, therefore she was admitted to the hospital yesterday on antibiotics and fluids. Her son states that she had some diarrhea recently but has had a normal stool since. She has had some sort of abdominal surgery which sounds like a hernia repair - they states that it had something to do with her muscle but that she had complications afterwards including infection. Her gallbladder was noted to be absent on CT scan, however the patient has denied having had a cholecystectomy. The patient's grandson states that she did have her gallbladder removed. The patient is not nauseated currently. She would like something to drink. She does have abdominal pain. [facility] Medical History (Updated 04/27/25 @ 11:41 by Omega Vargas MD) Sepsis ?A41.9 - Sepsis, unspecified organism (ICD-10) Asthma ?J45.909 - Unspecified asthma, uncomplicated (ICD-10) Systolic congestive heart failure ?I50.20 - Unspecified systolic (congestive) heart failure (ICD-10) Atherosclerotic heart disease of [place] coronary artery without angina pectoris ?I25.10 - Atherosclerotic heart disease of [place] coronary artery without angina pectoris (ICD-10) Nicotine dependence ?F17.200 - Nicotine dependence, unspecified, uncomplicated (ICD-10) Anemia ?D64.9 - Anemia, unspecified (ICD-10) Aphasia following cerebrovascular accident (CVA) ?I69.320 - Aphasia following cerebral infarction (ICD-10) Hemiplegia and hemiparesis following cerebral infarction affecting right dominant side ?I69.351 - Hemiplegia and hemiparesis following cerebral infarction affecting right dominant side (ICD-10) Vascular dementia ?F01.50 - Vascular dementia, unspecified severity, without behavioral disturbance, psychotic disturbance, mood disturbance, and anxiety (ICD-10) Sleep disorder ?G47.9 - Sleep disorder, unspecified (ICD-10) History of myocardial infarction ?I25.2 - Old myocardial infarction (ICD-10) Sjogrens syndrome ?M35.00 - Sjogren syndrome, unspecified (ICD-10) Hypertension ?I10 - Essential (primary) hypertension (ICD-10) Hyperlipidemia ?E78.5 - Hyperlipidemia, unspecified (ICD-10) Anxiety ?F41.9 - Anxiety disorder, unspecified (ICD-10) Type 2 diabetes mellitus ?E11.9 - Type 2 diabetes mellitus without complications (ICD-10) Hypothyroidism ?E03.9 - Hypothyroidism, unspecified (ICD-10) MDD (major depressive disorder) ?F32.9 - Major depressive disorder, single episode, unspecified (ICD-10) RC (acute kidney injury) ?N17.9 - Acute kidney failure, unspecified (ICD-10) CKD stage 3b, GFR 30-44 ml/min ?N18.32 - Chronic kidney disease, stage 3b (ICD-10) STEMI (ST elevation myocardial infarction) ?I21.3 - ST elevation (STEMI) myocardial infarction of unspecified site (ICD-10) CVA (cerebral vascular accident) ?I63.9 - Cerebral infarction, unspecified (ICD-10) Social History What is your current living situation?: I presently have a place to live Problems where you live: unable to answer Problems where you live details: at [facility] In the past 12 months, utilities in danger of being shut off: no In past 12 months, lack of transportation kept you from medical appts, meetings, work, or getting things needed for daily living: no In the past 12 mos, have been you worried that your food would run out before you had money to buy more?: never true In the past 12 mos, the food you bought just didn't last and you didn't have money to buy more?: never true Highest level of school completed/degree received: don't know Smoking Status: Unknown if ever smoked How often do you have a drink containing alcohol: never AUDIT-C Alcohol total score: 0 Non-prescribed substance use: denies use How often does anyone, including family, friends and others, physically hurt you: unable to answer How often does anyone, including family, friends and others, insult or talk down to you: unable to answer How often does anyone, including family, friends and others, threaten you with harm: unable to answer How often does anyone, including family, friends and others, scream or curse at you: unable to answer service: No Meds Home Medications and Allergies Home Medications ?Medication ?Instructions ?Recorded ?Confirmed ?Type BUTT CREAM 1 dose topical TID 04/27/25 04/27/25 History acetaminophen 500 mg tablet 1,000 mg PO DAILY PRN 04/27/25 04/27/25 History acetaminophen 500 mg tablet 1,000 mg PO TID 04/27/25 04/27/25 History aspirin 325 mg tablet 325 mg PO DAILY 04/27/25 04/27/25 History clopidogrel 75 mg tablet (Plavix) 75 mg PO DAILY 04/27/25 04/27/25 History donepezil 5 mg tablet (Aricept) 5 mg PO HS 04/27/25 04/27/25 History levothyroxine 100 mcg tablet 100 mcg PO DAILY 04/27/25 04/27/25 History (Levo-T) melatonin 3 mg capsule 3 mg PO HS PRN 04/27/25 04/27/25 History mirtazapine 15 mg tablet 15 mg PO HS 04/27/25 04/27/25 History nicotine 7 mg/24 hr daily 1 patch transdermal DAILY 04/27/25 04/27/25 History transdermal patch pantoprazole 40 mg tablet,delayed 40 mg PO HS 04/27/25 04/27/25 History release rosuvastatin 10 mg tablet (Crestor) 10 mg PO DAILY 04/27/25 04/27/25 History sennosides 8.6 mg tablet (Consuelo-darius) 8.6 mg PO BID 04/27/25 04/27/25 History sertraline 50 mg tablet 50 mg PO HS 04/27/25 04/27/25 History sitagliptin 50 mg tablet 50 mg PO DAILY 04/27/25 04/27/25 History tramadol 50 mg tablet 50 mg PO BID 04/27/25 04/27/25 History tramadol 50 mg tablet 50 mg PO Q4H PRN 04/27/25 04/27/25 History Allergies Allergy/AdvReac Type Severity Reaction Status Date / Time atorvastatin Allergy Unknown Unverified 04/26/25 23:01 glipizide Allergy Unknown Unverified 04/26/25 23:01 latex Allergy Unknown Unverified 04/26/25 23:01 metronidazole (From Flagyl) Allergy Unknown Unverified 04/26/25 23:01 Penicillins Allergy Unknown Unverified 04/26/25 23:01 Sulfa (Sulfonamide Allergy Unknown Unverified 04/26/25 23:01 Antibiotics) adhesive tape AdvReac Unknown Unverified 04/26/25 23:01 dye Allergy Unknown Uncoded 04/26/25 23:01 Exam Narrative: Exam Narrative: General appearance: Alert, cooperative, and in no distress Eyes: PERRLA, eye lids clear, and sclera white HENT Head: Normocephalic Ears: External ears normal Pulmonary: Breathing nonlabored on room air Cardiovascular Heart: Regular rate Extremities: warm and well perfused Gastrointestinal Abdominal: The patient's abdomen is mildly distended. Somewhat soft. If she does not seem to have peritonitis, but she is tender to palpation. She does have scarring below the umbilicus consistent with prior surgery. Musculoskeletal: Extremities: Upper: Both upper extremities have normal joint range of motion and intact strength. Lower: Both lower extremities have normal joint range of motion and intact strength. Skin: Normal skin color, texture, and turgor. Neurologic: No focal deficits Psychiatric: Alert, oriented, cooperative, normal affect. Const: Vital Signs, click to edit/add: Vital Signs - 24 hr 04/26/25 13:11 04/26/25 13:12 04/26/25 13:13 Temperature 98.9 F Pulse Rate 133 H 129 H Pulse Rate [Pulse Oximeter] Pulse Rate [Right Radial] 125 H Respiratory Rate 32 H 22 24 Blood Pressure 161/79 H Blood Pressure [Le ft Arm] Blood Pressure [Ri ght Upper Arm] 161/79 H Pulse Oximetry 94 92 93 Oxygen Delivery Me thod Room Air 04/26/25 13:15 04/26/25 13:30 04/26/25 13:45 Temperature Pulse Rate 130 H 121 H Pulse Rate [Pulse Oximeter] Pulse Rate [Right Radial] Respiratory Rate 18 21 22 Blood Pressure Blood Pressure [Le ft Arm] Blood Pressure [Ri ght Upper Arm] Pulse Oximetry 93 79 L 87 L Oxygen Delivery Mi thod 04/26/25 13:55 04/26/25 14:00 04/26/25 14:15 Temperature Pulse Rate 129 H Pulse Rate [Pulse Oximeter] Pulse Rate [Right Radial] Respiratory Rate 26 H 32 H Blood Pressure Blood Pressure [Le ft Arm] Blood Pressure [Ri ght Upper Arm] Pulse Oximetry 91 89 Oxygen Delivery Mi thod 04/26/25 14:27 04/26/25 14:30 04/26/25 14:45 Temperature Pulse Rate Pulse Rate [Pulse Oximeter] Pulse Rate [Right Radial] Respiratory Rate 15 24 21 Blood Pressure 146/77 H Blood Pressure [Le ft Arm] Blood Pressure [Ri ght Upper Arm] Pulse Oximetry Oxygen Delivery Mi thod 04/26/25 15:00 04/26/25 15:15 04/26/25 15:30 Temperature Pulse Rate 128 H Pulse Rate [Pulse Oximeter] Pulse Rate [Right Radial] Respiratory Rate 23 13 28 H Blood Pressure Blood Pressure [Le ft Arm] Blood Pressure [Ri ght Upper Arm] Pulse Oximetry 97 Oxygen Delivery Mi thod 04/26/25 15:45 04/26/25 16:00 04/26/25 16:15 Temperature Pulse Rate 129 H Pulse Rate [Pulse Oximeter] Pulse Rate [Right Radial] Respiratory Rate 30 H 31 H 18 Blood Pressure Blood Pressure [Le ft Arm] Blood Pressure [Ri ght Upper Arm] Pulse Oximetry 96 Oxygen Delivery Mi thod 04/26/25 16:30 04/26/25 16:45 04/26/25 17:00 Temperature Pulse Rate Pulse Rate [Pulse Oximeter] Pulse Rate [Right Radial] Respiratory Rate 13 25 H 22 Blood Pressure Blood Pressure [Le ft Arm] Blood Pressure [Ri ght Upper Arm] Pulse Oximetry Oxygen Delivery Mi thod 04/26/25 17:15 04/26/25 17:30 04/26/25 17:31 Temperature Pulse Rate Pulse Rate [Pulse Oximeter] Pulse Rate [Right Radial] Respiratory Rate 20 20 20 Blood Pressure 163/84 H Blood Pressure [Le ft Arm] Blood Pressure [Ri ght Upper Arm] Pulse Oximetry Oxygen Delivery Me thod 04/26/25 18:15 04/26/25 18:30 04/26/25 18:47 Temperature Pulse Rate 122 H 122 H 119 H Pulse Rate [Pulse Oximeter] Pulse Rate [Right Radial] Respiratory Rate 36 H 18 25 H Blood Pressure Blood Pressure [Le ft Arm] Blood Pressure [Ri ght Upper Arm] Pulse Oximetry 98 95 93 Oxygen Delivery Me thod 04/26/25 19:00 04/26/25 19:15 04/26/25 19:30 Temperature Pulse Rate 118 H 122 H 123 H Pulse Rate [Pulse Oximeter] Pulse Rate [Right Radial] Respiratory Rate 19 24 57 H Blood Pressure Blood Pressure [Le ft Arm] Blood Pressure [Ri ght Upper Arm] Pulse Oximetry 91 95 93 Oxygen Delivery Mi thod 04/26/25 19:45 04/26/25 20:41 04/26/25 21:00 Temperature Pulse Rate 126 H 123 H 122 H Pulse Rate [Pulse Oximeter] Pulse Rate [Right Radial] Respiratory Rate 19 19 20 Blood Pressure 139/72 Blood Pressure [Le ft Arm] Blood Pressure [Ri ght Upper Arm] Pulse Oximetry 95 94 94 Oxygen Delivery Mi thod 04/26/25 21:15 04/26/25 21:30 04/26/25 22:00 Temperature Pulse Rate 122 H 122 H 119 H Pulse Rate [Pulse Oximeter] Pulse Rate [Right Radial] Respiratory Rate 14 14 18 Blood Pressure Blood Pressure [Le ft Arm] Blood Pressure [Ri ght Upper Arm] Pulse Oximetry 97 95 100 Oxygen Delivery Mi thod 04/26/25 23:20 04/26/25 23:20 04/26/25 23:20 Temperature 98.3 F 98.3 F 98.3 F Pulse Rate Pulse Rate [Pulse Oximeter] 123 H 123 H Pulse Rate [Right Radial] Respiratory Rate 20 20 20 Blood Pressure Blood Pressure [Le ft Arm] 141/80 H 141/80 H 141/80 H Blood Pressure [Ri ght Upper Arm] Pulse Oximetry 97 97 97 Oxygen Delivery Mi thod Room Air Room Air Room Air 04/27/25 03:21 04/27/25 08:00 04/27/25 08:10 Temperature 98.1 F 98.2 F Pulse Rate Pulse Rate [Pulse Oximeter] 120 H 110 H 110 H Pulse Rate [Right Radial] Respiratory Rate 16 16 20 Blood Pressure Blood Pressure [Le ft Arm] 133/76 138/74 Blood Pressure [Ri ght Upper Arm] Pulse Oximetry 94 96 Oxygen Delivery Me thod Room Air Room Air Results Labs Labs: WBC: 28 on admission, 27 today Hgb 13 on admission, 10.2 today Bicarb on admission 16, 15 today CRP 20.3 on admission, 19 today Cre 2.5 on admission, 2.3 today urine culture from yesterday is growing E coli, resistant to fluoroquinolones. Imaging Abdomen CT scan report/results: report reviewed and image reviewed Additional studies: Ordering Physician: Fabiano Rajan M.D. Date of Service: 04/26/25 Procedure(s): CT chest abdomen pelv wo con Accession Number(s): [id number] cc: Joe Subramanian M.D.; Fabiano Rajan M.D.~ For Patients: As a result of the Cures Act, medical imaging exams and procedure reports are released immediately into your electronic medical record. You may view this report before your referring provider. If you have questions, please contact your health care provider. INDICATION: Mid abdominal pain, vomiting TECHNIQUE: CT chest, abdomen and pelvis acquired without contrast. COMPARISON: Same day chest radiograph. FINDINGS: CHEST: Cardiovascular structures: Heart size is normal. Thoracic aorta and main pulmonary artery are normal in caliber. Severe coronary artery calcifications. Mitral annular calcifications. Diffuse atherosclerotic calcification of the aorta and branches. Mediastinum and mirela: No mass or adenopathy. Prominent precarinal lymph node, possibly reactive. Lungs and pleura: Scattered pulmonary nodules are present, including a solid subpleural nodule in the anterior left upper lobe measuring 4 millimeters in size (series 3, image 29). Subpleural reticulation is present bilaterally, possibly reflecting underlying fibrosis. Dependent atelectasis. No pleural effusion or pneumothorax. Chest wall and axilla: No mass or adenopathy. Bones: No acute or suspicious osseous abnormality. ABDOMEN AND PELVIS: Liver: Unremarkable. Gallbladder and bile ducts: Prior cholecystectomy. Prominent extrahepatic bile ducts likely secondary to post cholecystectomy reservoir effect. Pancreas: Mild fatty infiltration. No peripancreatic inflammation. Spleen: Nonenlarged. Probable calcified granulomas. Adrenal glands: Thickened left adrenal gland without discrete nodule. Kidneys: Mildly atrophic in appearance. No hydronephrosis. GI tract: Multiple mildly prominent gas and fluid-filled loops of small bowel are present. There are fecalized contents within several loops of small bowel. No transition point seen. Colonic diverticulosis without acute diverticulitis. Vascular structures: Ectasia of the infrarenal abdominal aorta measuring approximally 2.7 centimeters in maximum dimension. Diffuse atherosclerotic disease. Lymph nodes: Unremarkable. Miscellaneous: Moderate-sized fat containing umbilical hernia. Soft tissue calcifications along the lower anterior abdominal wall and within the right gluteal subcutaneous tissues. No free air or significant free fluid. Pelvic Organs: Left bladder diverticulum. Bones: No acute or suspicious osseous abnormality. IMPRESSION: 1. Multiple prominent loops of small bowel are present, nondilated by size criteria and without evident transition point. Fecalized contents are present within a few small bowel loops consistent with slow intestinal transit. Findings may reflect ileus, but early partial small bowel obstruction is not excluded. 2. Incidental pulmonary nodules measuring up to 4 millimeters in size, which could be followed with optional CT chest without contrast in 12 months if the patient is at high risk of malignancy. Dictated by Erica Berumen MD @ 04/26/2025 7:13:53 PM Progress Note:A&P Assessment and plan (1) Type 2 NJ (myocardial infarction): Status: Acute (2) Systolic congestive heart failure: Status: Acute (3) Atherosclerotic heart disease of [place] coronary artery without angina pectoris: Status: Acute (4) Hemiplegia and hemiparesis following cerebral infarction affecting right dominant side: Status: Acute (5) Vascular dementia: Status: Acute (6) Type 2 diabetes mellitus: Status: Acute (7) RC (acute kidney injury): Status: Acute (8) CKD stage 3b, GFR 30-44 ml/min: Status: Acute (9) Vomiting: Status: Acute (10) Sepsis: Status: Acute Plan The patient is an 84-year-old female with multiple chronic medical issues including a recent acute stroke with a sepsis type picture, demand ischemia and acute on chronic kidney failure with possible bowel obstruction versus bowel ischemia or other intra-abdominal pathology. CT scan with contrast would rule in or out the above pathologies, however since the patient and her son do not want any aggressive intervention such as surgery even if that meant could be life saving, I do not think obtaining further imaging will be helpful. The patient does appear to have E coli in her urine. She is being treated for this appropriately. I am not sure that this explains her white blood cell count of 27, however certainly if she improves with fluids and antibiotics then this would be excellent. Praful states that his mother never wanted to be in a skilled nursing but she is at a level where she cannot care for herself on her own. He says that her wishes are very clear and what she wants for the end of life which is pain control without aggressive intervention. I think it is very reasonable to continue with antibiotics and fluids for today and if she would to deteriorate then comfort measures could be pursued. I explained that if she does have bowel ischemia, a she would likely not recover from this Without surgery and may not return to baseline as surgery could result in further cerebral, renal and coronary ischemia. He expressed good understanding biopsy out of that. They are working on seeing if they can get her discharged home possibly with hospice in the next day or 2 depending on her clinical course. she would like to have some juice. I explained that a small amount is okay as long as she is not nauseated.
[2025-04-27] MEDS: PANTOPRAZOLE SODIUM 40 MG INJ IVP (09:22)
[2025-04-27] MEDS: 5 % DEXTROSE IN LAC RINGER'S 1,000 ML 125 ML IV ×2 (09:28→17:37)
[2025-04-27] MEDS: MORPHINE 4 MG/ML INJ 2 MG IVP (09:54)
[2025-04-27] MEDS: MORPHINE 4 MG/ML INJ IVP ×2 (10:09→21:07)
--- NOTE | 2025-04-27 10:46 | W.PC.NUTR.NO ---
Nutrition Progress Note Progress Note Progress Note: RDN with nutrition screen related to positive skin risk score. Patient admitted for sepsis and abdominal pain in the setting of nausea and vomiting. Past medical history significant for vascular dementia, type 2 diabetes mellitus, hypertension, hyperlipidemia, CKD stage IIIB, systolic heart failure, history of STEMI, nicotine dependence, recent CVA with hemiplegia and hemiparesis with aphasia. She is a resident at [facility] memory care. Patient is currently NPO. No weight history in chart. BMI 23.6 kg/m2. No nutrition interventions at this time with NPO diet order and goals of care being discussed. RDN will continue to monitor and follow-up as appropriate.
--- NOTE | 2025-04-27 11:22 | PM.IMPN1 ---
Assessment and Plan Assessment and plan (1) Sepsis: Problem comment: -leukocytosis with left shift, WBC 28.64, lactate 2.3 -> 1.3 following IVF, tachycardic, tachypneic, afebrile, acute kidney injury, type 2 [place]. -suspect mesenteric ischemia. Son declines any surgical intervention. Seeking medical management with IV fluids and antibiotics. Status: Acute (2) Mesenteric ischemia: Problem comment: Likely the cause of acute illness. No surgical intervention. Discussing possibility of moving to comfort cares Status: Acute (3) Vascular dementia: Problem comment: -with increased agitation following CVA in January -continue home medications -Haldol p.r.n. SonNeil, states patient has a POLST (reviewed) but no healthcare directive. We discussed that with her state of vascular dementia, as next of kin, he will need to help make decisions for her during this hospitalization as her understanding and comprehension as well as ability to retain the information that is provided to her is limited. He verbalizes understanding. As documented above, with myself and ED provider in attendance, plan is made for nonsurgical intervention, trial of IV antibiotics, monitoring, and possibly pursuing comfort cares if no improvement or worsening noted. Status: Acute (4) Hemiplegia and hemiparesis following cerebral infarction affecting right dominant side: Problem comment: -CVA 02/14 Status: Acute (5) Type 2 [place] (myocardial infarction): Problem comment: Elevated troponin likely due to type 2 [place], demand ischemia from acute illness and underlying chronic coronary disease Status: Acute (6) RC (acute kidney injury): Problem comment: -creatinine 2.5. Creatinine on 03/15/2025 was 1.4. Prerenal versus ATN -avoid nephrotoxic medications, renally dose IV antibiotics, continue IVF, monitor. Status: Acute (7) Palliative care encounter: Problem comment: Reviewed written documents and discussed with son who is designated healthcare power of ip [employer] attorney as well as grandson who is present today. Patient is been quite clear for the last 14 years that she does not want aggressive intervention to prolong life. That would include any surgery, ICU level life support, ventilator. Discussing whether she would want any life prolonging treatment at this point. She definitely wants comfort measures to minimize pain. Continue to discuss with son. Fentanyl patches started. Status: Acute Plan 84-year-old female who was critically ill with sepsis probably due to mesenteric ischemia. Poor prognosis. Declining surgery or transfer for ICU level care. After discussion with the son today the plan is to continue IV fluids and IV antibiotics and initiate aggressive comfort measures. Discussing goals of care and possible transition to comfort cares. Total Time Spent Total Time Spent: Total time spent today is 100 minutes in reviewing outside records, coordination of care, discussing ongoing evaluation and management of sepsis and mesenteric ischemia Subjective Date Seen: 04/27/25 Interval history: 84-year-old female, resident of [facility], after a stroke about 3 months ago causing fairly severe disability and vascular dementia presents with couple days of vomiting. History is obtained from her son who is [facility] power of ip technology transactions attorney. He reports that she was having some mild intermittent abdominal symptoms for the last 4-5 days. Even prior to that she would have occasional episodes of constipation and diarrhea following laxative use. In the past 2 days she has had recurrent episodes of vomiting and abdominal pain. She has a history of stroke causing right hemiparesis and dementia about 3 months ago, type 2 diabetes, hypertension, hyperlipidemia, coronary artery disease with STEMI, heart failure. She has advance care documents establishing that she does not want surgical intervention or aggressive life-prolonging treatment. Her son who is [facility] power of ip technology transactions attorney concurs with this as does her grandson who was also present. Her son also notes that since her stroke she has been on happy with her quality of life. Exam Narrative: Exam Narrative: She is alert and confused. She is not oriented to place or circumstances. Oropharynx with dry mucous membranes. Respirations are clear to auscultation. Cardiovascular: S1, S2, regular rate and rhythm. Abdomen: Bowel sounds are present. Abdomen is diffusely tender even to very light touch including auscultation with the stethoscope. She has a small hernia below her umbilicus which is soft and not incarcerated. Skin is without rash. Lower extremities without edema. Diminished pedal pulses. She also has moderate amount of tenderness to light touch as in palpating her pedal pulses. Const: Vital Signs, click to edit/add: Vital Signs - 24 hr 04/26/25 13:11 04/26/25 13:12 04/26/25 13:13 Temperature 98.9 F Pulse Rate 133 H 129 H Pulse Rate [Pulse Oximeter] Pulse Rate [Right Radial] 125 H Respiratory Rate 32 H 22 24 Blood Pressure 161/79 H Blood Pressure [Le ft Arm] Blood Pressure [Ri ght Upper Arm] 161/79 H Pulse Oximetry 94 92 93 [facility] 04/26/25 13:15 04/26/25 13:30 04/26/25 13:45 Temperature Pulse Rate 130 H 121 H Pulse Rate [Pulse Oximeter] Pulse Rate [Right Radial] Respiratory Rate 18 21 22 Blood Pressure Blood Pressure [Le ft Arm] Blood Pressure [Ri ght Upper Arm] Pulse Oximetry 93 79 L 87 L [facility] 04/26/25 13:55 04/26/25 14:00 04/26/25 14:15 Temperature Pulse Rate 129 H Pulse Rate [Pulse Oximeter] Pulse Rate [Right Radial] Respiratory Rate 26 H 32 H Blood Pressure Blood Pressure [Le ft Arm] Blood Pressure [Ri ght Upper Arm] Pulse Oximetry 91 89 [facility] 04/26/25 14:27 04/26/25 14:30 04/26/25 14:45 Temperature Pulse Rate Pulse Rate [Pulse Oximeter] Pulse Rate [Right Radial] Respiratory Rate 15 24 21 Blood Pressure 146/77 H Blood Pressure [Le ft Arm] Blood Pressure [Ri ght Upper Arm] Pulse Oximetry [facility] 04/26/25 15:00 04/26/25 15:15 04/26/25 15:30 Temperature Pulse Rate 128 H Pulse Rate [Pulse Oximeter] Pulse Rate [Right Radial] Respiratory Rate 23 13 28 H Blood Pressure Blood Pressure [Le ft Arm] Blood Pressure [Ri ght Upper Arm] Pulse Oximetry 97 [facility] 04/26/25 15:45 04/26/25 16:00 04/26/25 16:15 Temperature Pulse Rate 129 H Pulse Rate [Pulse Oximeter] Pulse Rate [Right Radial] Respiratory Rate 30 H 31 H 18 Blood Pressure Blood Pressure [Le ft Arm] Blood Pressure [Ri ght Upper Arm] Pulse Oximetry 96 [facility] 04/26/25 16:30 04/26/25 16:45 04/26/25 17:00 Temperature Pulse Rate Pulse Rate [Pulse Oximeter] Pulse Rate [Right Radial] Respiratory Rate 13 25 H 22 Blood Pressure Blood Pressure [Le ft Arm] Blood Pressure [Ri ght Upper Arm] Pulse Oximetry [facility] 04/26/25 17:15 04/26/25 17:30 04/26/25 17:31 Temperature Pulse Rate Pulse Rate [Pulse Oximeter] Pulse Rate [Right Radial] Respiratory Rate 20 20 20 Blood Pressure 163/84 H Blood Pressure [Le ft Arm] Blood Pressure [Ri ght Upper Arm] Pulse Oximetry Oxygen Delivery Me thod 04/26/25 18:15 04/26/25 18:30 04/26/25 18:47 Temperature Pulse Rate 122 H 122 H 119 H Pulse Rate [Pulse Oximeter] Pulse Rate [Right Radial] Respiratory Rate 36 H 18 25 H Blood Pressure Blood Pressure [Le ft Arm] Blood Pressure [Ri ght Upper Arm] Pulse Oximetry 98 95 93 Oxygen Delivery Me thod 04/26/25 19:00 04/26/25 19:15 04/26/25 19:30 Temperature Pulse Rate 118 H 122 H 123 H Pulse Rate [Pulse Oximeter] Pulse Rate [Right Radial] Respiratory Rate 19 24 57 H Blood Pressure Blood Pressure [Le ft Arm] Blood Pressure [Ri ght Upper Arm] Pulse Oximetry 91 95 93 Oxygen Delivery Me thod 04/26/25 19:45 04/26/25 20:41 04/26/25 21:00 Temperature Pulse Rate 126 H 123 H 122 H Pulse Rate [Pulse Oximeter] Pulse Rate [Right Radial] Respiratory Rate 19 19 20 Blood Pressure 139/72 Blood Pressure [Le ft Arm] Blood Pressure [Ri ght Upper Arm] Pulse Oximetry 95 94 94 Oxygen Delivery Me thod 04/26/25 21:15 04/26/25 21:30 04/26/25 22:00 Temperature Pulse Rate 122 H 122 H 119 H Pulse Rate [Pulse Oximeter] Pulse Rate [Right Radial] Respiratory Rate 14 14 18 Blood Pressure Blood Pressure [Le ft Arm] Blood Pressure [Ri ght Upper Arm] Pulse Oximetry 97 95 100 Oxygen Delivery Me thod 04/26/25 23:20 04/26/25 23:20 04/26/25 23:20 Temperature 98.3 F 98.3 F 98.3 F Pulse Rate Pulse Rate [Pulse Oximeter] 123 H 123 H Pulse Rate [Right Radial] Respiratory Rate 20 20 20 Blood Pressure Blood Pressure [Le ft Arm] 141/80 H 141/80 H 141/80 H Blood Pressure [Ri ght Upper Arm] Pulse Oximetry 97 97 97 Oxygen Delivery Me thod Room Air Room Air Room Air 04/27/25 03:21 04/27/25 08:00 04/27/25 08:10 Temperature 98.1 F 98.2 F Pulse Rate Pulse Rate [Pulse Oximeter] 120 H 110 H 110 H Pulse Rate [Right Radial] Respiratory Rate 16 16 20 Blood Pressure Blood Pressure [Le ft Arm] 133/76 138/74 Blood Pressure [Ri ght Upper Arm] Pulse Oximetry 94 96 Oxygen Delivery Me thod Room Air Room Air Documenting provider has reviewed patient's vital signs: yes Labs Labs: Laboratory Results - last 24 hr 04/26/25 04/26/25 04/26/25 17:26 19:20 19:38 WBC 28.64 H* RBC 4.03 Hgb 13.0 Hct 40.2 MCV 100 MCH 32 MCHC 32 RDW Coeff of Dipti 18.1 H Plt Count 371 Neut % (Auto) 86.3 H Lymph % (Auto) 7.3 L [place] % (Auto) 5.3 Eos % (Auto) 0.0 Baso % (Auto) 0.0 Neut # (Auto) 24.70 H Lymph # (Auto) 2.10 [place] # (Auto) 1.50 H Eos # (Auto) 0.00 Baso # (Auto) 0.00 Abs Immat Gran (auto) 0.30 Imm/Tot Granulo (auto) 1.1 Diff Slide Review Acceptable Review VBG pH 7.355 VBG pCO2 31 L VBG pO2 44.6 VBG HCO3 17 L Sodium 142 Potassium 5.1 Chloride 111 Carbon Dioxide 16 L Anion Gap 15 BUN 48 H Creatinine 2.5 H Estimated Creat Clear 12.64 Estimated GFR 19 Glucose 129 H Lactate 2.3 H Calcium 9.0 Phosphorus Magnesium Total Bilirubin Direct Bilirubin AST ALT Alkaline Phosphatase Troponin I 0.32 H* C-Reactive Protein 20.3 H Total Protein Albumin TSH Urine Color Yellow Urine Appearance Clear Urine pH 5.0 Ur Specific [place] >= 1.030 Urine Protein 1+ A Urine Glucose (UA) Negative Urine Ketones Negative Urine Blood Negative Urine Nitrite Negative Urine Bilirubin 1+ A Urine Urobilinogen 0.2 Ur Leukocyte Esterase Negative Urine RBC 2-5 A Urine WBC 2-5 Ur Squamous Epith Cells Few Urine Bacteria Moderate A SARS-CoV-2 (PCR) Influenza Type A (PCR) Influenza Type B (PCR) RSV (PCR) Lab Acknowledgement 1104/26/25 04/26/25 19:50 20:27 21:15 WBC RBC Hgb Hct MCV MCH MCHC RDW Coeff of Dipti Plt Count Neut % (Auto) Lymph % (Auto) [place] % (Auto) Eos % (Auto) Baso % (Auto) Neut # (Auto) Lymph # (Auto) [place] # (Auto) Eos # (Auto) Baso # (Auto) Abs Immat Gran (auto) Imm/Tot Granulo (auto) Diff Slide Review VBG pH VBG pCO2 VBG pO2 VBG HCO3 Sodium Potassium Chloride Carbon Dioxide Anion Gap BUN Creatinine Estimated Creat Clear Estimated GFR Glucose Lactate 1.3 Calcium Phosphorus Magnesium Total Bilirubin 0.6 Direct Bilirubin 0.6 H AST 86 H ALT 17 Alkaline Phosphatase 78 Troponin I 0.33 H* C-Reactive Protein Total Protein 6.3 Albumin 2.9 L TSH Urine Color Urine Appearance Urine pH Ur Specific [place] Urine Protein Urine Glucose (UA) Urine Ketones Urine Blood Urine Nitrite Urine Bilirubin Urine Urobilinogen Ur Leukocyte Esterase Urine RBC Urine WBC Ur Squamous Epith Cells Urine Bacteria SARS-CoV-2 (PCR) Negative SARS-CoV-2 Influenza Type A (PCR) Negative PCR FLU A Influenza Type B (PCR) Negative PCR FLU B RSV (PCR) Negative PCR RSV Lab Acknowledgement Test Added 04/26/25 04/27/25 04/27/25 23:29 06:10 06:22 WBC 27.26 H* RBC 3.16 L Hgb 10.2 L Hct 32.4 L MCV 103 H MCH 32 MCHC 32 RDW Coeff of Dipti Plt Count 252 Neut % (Auto) Lymph % (Auto) [place] % (Auto) Eos % (Auto) Baso % (Auto) Neut # (Auto) Lymph # (Auto) [place] # (Auto) Eos # (Auto) Baso # (Auto) Abs Immat Gran (auto) Imm/Tot Granulo (auto) Diff Slide Review VBG pH 7.274 L VBG pCO2 33 L VBG pO2 37.5 VBG HCO3 16 L Sodium 143 Potassium 4.0 Chloride 117 H Carbon Dioxide 15 L Anion Gap 11 BUN 48 H Creatinine 2.3 H Estimated Creat Clear 13.74 Estimated GFR 20 Glucose 88 Lactate Calcium 7.5 L Phosphorus 4.3 Magnesium 1.2 L Total Bilirubin Direct Bilirubin AST ALT Alkaline Phosphatase Troponin I 0.31 H* C-Reactive Protein 19.0 H Total Protein Albumin TSH 0.315 Urine Color Urine Appearance Urine pH Ur Specific [place] Urine Protein Urine Glucose (UA) Urine Ketones Urine Blood Urine Nitrite Urine Bilirubin Urine Urobilinogen Ur Leukocyte Esterase Urine RBC Urine WBC Ur Squamous Epith Cells Urine Bacteria SARS-CoV-2 (PCR) Influenza Type A (PCR) Influenza Type B (PCR) RSV (PCR) Lab Acknowledgement Test Added Test Added
[2025-04-27] MEDS: ONDANSETRON 2 MG/ML inj 4 MG IVP (11:29)
--- NOTE | 2025-04-27 14:39 | PC.NURSE ---
end of shift./ pt mood changes from nice to very angry yelling and threatening and cursing. Pt AOx3. off on date./ she has abd pain, she is getting IV pain meds and a pain patch. managed by pain meds and ice. Pt does yell out in pain at times. she did not like the MD when he was feeling abd or legs. pt did not want to get out of bed. she can have sips of juice and ice chips. she got Zofran for nausea 1 time. IV has been patent. family was here visiting.
--- NOTE | 2025-04-27 15:01 | PC.SOCIAL ---
Discharge planning: ice cream vault worker met with the pt, her son, Neil, and her grandson, Jas. Neil confirmed that the pt is on a bed hold at [facility] and the plan will be for her to go back there. They have not made the decision about comfort cares/hospice yet, but they did have the discussion with the provider on duty. Pt's son also plans to go to [facility] this afternoon to talk to the staff there about his mother's return from the hospital. Social work to follow-up as needed.
--- NOTE | 2025-04-27 19:17 | PC.NURSE ---
shift note (04/26: [id number]): Pt arrived from the ED, oriented to self only. Pt demonstrates being upset through swatting arms at RNs and calling the RN ?bitch.? R wrist IV removed by pt., in pt?s hand when RN entered room. Pt VSS. Pt has open skin and blanchable redness on coccyx; Mepilex applied. Pt repositioned & brief changed q2hr throughout shift. Bladder scan performed, urine measured in bladder <91cc. Pt. Able to swallow pills hole with water. Pt slept intermittently, call light w/i reach.
--- NOTE | 2025-04-27 23:39 | PC.NURSE ---
End of Shift 243 Patient was very combative throughout the shift. Patient refused medications, repositioning and glucose checks at times. Patient was re-approached one hour later for medications successfully, but not for the glucose check. VSS. Afebrile. Call light within reach.
[2025-04-28] VITALS (7 sets, daily range): BP systolic 129–147; BP diastolic 61–81; PULSE 81–95; RESP 12–18; TEMP 36.7–37.4; O2SAT 94–100
--- NOTE | 2025-04-28 00:09 | PC.NURSE ---
Call received from lab- patient had positive blood cultures in the anaerobic bottle, gram + cocci in clusters. Hector notified of positive blood culture results. No new orders received at this time. Pt is currently on Meropenum.
[2025-04-28] MEDS: ENOXAPARIN 30 MG/0.3ML INJ SUBCUT ×2 (00:15→23:54)
[2025-04-28] MEDS: MORPHINE 4 MG/ML INJ IVP ×3 (03:04→23:49)
[2025-04-28] MEDS: 5 % DEXTROSE IN LAC RINGER'S 1,000 ML 125 ML IV ×2 (03:08→15:42)
[2025-04-28] MEDS: VANCOMYCIN 1 GM/200 ML 1 GM/200 ML PIGGYBACK IVPB (03:23)
[2025-04-28 06:31] LABS: Hematocrit* 30.4 % (33.0-51.0); Hemoglobin* 9.6 gm/dL (12.0-16.0); Lactate* 1.2 mmol/L (0.5-1.9); Mean Corpuscular HGB Conc 32 gm/dL (32-36); Mean Corpuscular Hemoglobin 33 pg (26-34); Mean Corpuscular Volume 103 fL (80-100); Red Blood Count* 2.95 m/uL (4.00-5.20); White Blood Count* 21.46 K/uL (4.50-11.00)
[2025-04-28 06:34] LABS: Slide Review Reflex No
[2025-04-28 06:51] LABS: Chloride* 120 mmol/L (96-114); Potassium* 3.4 mmol/L (3.6-5.1); Sodium* 144 mmol/L (135-149)
[2025-04-28 06:54] LABS: Anion Gap 7 mEq/L (7-15); Blood Urea Nitrogen* 40 mg/dL (7-30); Calcium* 7.6 mg/dL (8.4-10.6); Carbon Dioxide* 17 mmol/L (20-32); Creatinine* 1.8 mg/dL (0.5-1.5); Est. Creatinine Clearance* 17.56; Estimated Glomerular Filt Rate 27 ml/min; Glucose* 112 mg/dL (60-115)
[2025-04-28] MEDS: LEVOTHYROXINE 100 MCG TABLET PO (07:21)
--- NOTE | 2025-04-28 07:33 | PC.NURSE ---
End of shift: Pt alert, oriented to self and vitally stable. Pt cooperative with staff throughout shift. Pt stated some pain around 0300, behavior indicated pain as well, prn morphine given, pt stated improvement. Turned, checked and repoed q 2-3 h. Took pills whole with juice. Pt in bed, appears to be resting, call light within reach, bed alarm on.
[2025-04-28] MEDS: POTASSIUM CHLORIDE 10 MEQ CAPSULE ER 20 MEQ PO (09:18)
[2025-04-28] MEDS: SODIUM CHLORIDE 0.9 % (FLUSH) 10 ML SYRINGE 5 ML IVF (09:19)
[2025-04-28] MEDS: CLOPIDOGREL 75 MG TABLET PO (09:37)
[2025-04-28] MEDS: OMEPRAZOLE 20 MG CAPSULE DR PO (09:37)
[2025-04-28] MEDS: ROSUVASTATIN CALCIUM 10 MG TABLET PO (09:38)
[2025-04-28] MEDS: MAGNESIUM IV 2 GM/50 ML PIGGYBACK IVPB (10:37)
--- NOTE | 2025-04-28 11:32 | PM.IMPN1 ---
Assessment and Plan Assessment and plan (1) Sepsis: Problem comment: -leukocytosis with left shift, WBC 28.64, lactate 2.3 -> 1.3 following IVF, tachycardic, tachypneic, afebrile, acute kidney injury, type 2 [place]. -suspect mesenteric ischemia. Son declines any surgical intervention. Seeking medical management with IV fluids and antibiotics. Status: Acute (2) Mesenteric ischemia: Problem comment: Likely the cause of acute illness. No surgical intervention. Discussing possibility of moving to comfort cares Status: Acute (3) Bacteremia: Problem comment: Gram-positive cocci in clusters. On vancomycin. Status: Acute (4) Type 2 [place] (myocardial infarction): Problem comment: Elevated troponin likely due to type 2 [place], demand ischemia from acute illness and underlying chronic coronary disease Status: Acute (5) Systolic congestive heart failure: Problem comment: -monitor for fluid overload in management of sepsis Status: Acute (6) Atherosclerotic heart disease of [place] coronary artery without angina pectoris: Status: Acute (7) Hemiplegia and hemiparesis following cerebral infarction affecting right dominant side: Problem comment: -CVA 02/14 Status: Acute (8) Vascular dementia: Problem comment: -with increased agitation following CVA in January -continue home medications -Haldol p.r.n. Son, Neil, states patient has a POLST (reviewed) but no healthcare directive. We discussed that with her state of vascular dementia, as next of kin, he will need to help make decisions for her during this hospitalization as her understanding and comprehension as well as ability to retain the information that is provided to her is limited. He verbalizes understanding. As documented above, with myself and ED provider in attendance, plan is made for nonsurgical intervention, trial of IV antibiotics, monitoring, and possibly pursuing comfort cares if no improvement or worsening noted. Status: Acute (9) Type 2 diabetes mellitus: Problem comment: -most recent A1c 5.7 -hold sitagliptin while NPO -glucose checks and insulin sliding scale ACHS Status: Acute (10) RC (acute kidney injury): Problem comment: -creatinine on admission 2.5. Creatinine on 03/15/2025 was 1.4. Creatinine 1.8 on April 28. Prerenal versus ATN. Status: Acute (11) Vomiting: Problem comment: Having occasional recurrent episodes. Using antiemetics. Likely having nausea as she is taking minimal p.o. fluid Status: Acute (12) Palliative care encounter: Problem comment: Reviewed written documents and discussed with son who is designated healthcare power of [place] attorney as well as grandson who is present today. Patient is been quite clear for the last 14 years that she does not want aggressive intervention to prolong life. That would include any surgery, ICU level life support, ventilator. She has also been very clear that she does not want to be in a group home as she has been for the last few months. Discussing whether she would want any life prolonging treatment at this point. She definitely wants comfort measures to minimize pain. Continue to discuss with son/POA. He would like her to make the decision. She does not understand the question of life prolonging treatment with palliative care verses comfort care alone with hospice. Fentanyl patches started. Status: Acute Plan Continue in hospital for ongoing palliative care and life-prolonging treatment with IV fluids and IV antibiotics pending clinical course and ongoing discussion about goals of care Total Time Spent Total Time Spent: Total time spent today is 55 minutes in coordination of care and discussing with patient and son palliative care/goals of care Subjective Date Seen: 04/28/25 Interval history: 84-year-old female, resident of [facility], after a stroke about 3 months ago causing fairly severe disability and vascular dementia presents with couple days of vomiting. History is obtained from her son who is healthcare power of [place] attorney. He reports that she was having some mild intermittent abdominal symptoms for the last 4-5 days. Even prior to that she would have occasional episodes of constipation and diarrhea following laxative use. In the past 2 days she has had recurrent episodes of vomiting and abdominal pain. She has a history of stroke causing right hemiparesis and dementia about 3 months ago, type 2 diabetes, hypertension, hyperlipidemia, coronary artery disease with STEMI, heart failure. She has advance care documents establishing that she does not want surgical intervention or aggressive life-prolonging treatment. Her son who is healthcare power of [place] attorney concurs with this as does her grandson who was also present. Her son also notes that since her stroke she has been on happy with her quality of life. 04/28/2025: Patient occasionally agitated. Occasionally getting IV morphine in addition to Duragesic patch. Had a small emesis after receiving medications this morning. Drinking minimal fluids. Nursing reports that she is occasionally having wet diapers and is had no evidence of a bowel movement. Discussed with her son her current status. By laboratory studies and clinical examination she is minimally improved. Prognosis remains poor. Exam Narrative: Exam Narrative: She is alert and appears in no distress. Episodically verbalizes unhappiness. Confused. Unable to recall any significant information that has been given to her even a minute or 2 later. Unable to reliably report pain. Respirations are clear to auscultation. Cardiovascular: S1, S2, regular rate and rhythm. Abdomen: Bowel sounds are present. Abdomen is soft with moderate tenderness greater on the right side. Becomes quite agitated with attempts at abdominal examination. Lower extremities without edema. Warm to touch. Const: Vital Signs, click to edit/add: Vital Signs - 24 hr 04/27/25 15:00 04/27/25 15:00 04/27/25 19:00 Temperature 97.9 F 97.8 F Pulse Rate [Pulse Oximeter] 97 97 103 H Respiratory Rate 18 18 Blood Pressure [Le ft Arm] 139/73 124/104 H Pulse Oximetry 99 99 Oxygen Delivery Me thod Room Air Room Air 04/27/25 23:00 04/28/25 00:11 04/28/25 03:36 Temperature 98.2 F Pulse Rate [Pulse Oximeter] 95 95 Respiratory Rate 18 18 16 Blood Pressure [Le ft Arm] 135/81 Pulse Oximetry 97 Oxygen Delivery Me thod Room Air 04/28/25 07:39 04/28/25 07:39 04/28/25 11:08 Temperature 98.6 F 99.4 F Pulse Rate [Pulse Oximeter] 88 88 91 Respiratory Rate 18 18 12 Blood Pressure [Le ft Arm] 147/76 H 129/75 Pulse Oximetry 98 97 Oxygen Delivery Me thod Room Air Room Air Documenting provider has reviewed patient's vital signs: yes Labs Labs: Laboratory Results - last 24 hr 04/28/25 06:25 WBC 21.46 H RBC 2.95 L Hgb 9.6 L Hct 30.4 L MCV 103 H MCH 33 MCHC 32 Plt Count 223 Sodium 144 Potassium 3.4 L Chloride 120 H Carbon Dioxide 17 L Anion Gap 7 BUN 40 H Creatinine 1.8 H Estimated Creat Clear 17.56 Estimated GFR 27 Glucose 112 Lactate 1.2 Calcium 7.6 L C-Reactive Protein 12.7 H
[2025-04-28] MEDS: POTASSIUM CHLORIDE 10 MEQ/100 ML PIGGYBACK 100 MEQ IVPB ×2 (12:39→15:13)
[2025-04-28] MEDS: ONDANSETRON 2 MG/ML inj 4 MG IVP (12:50)
--- NOTE | 2025-04-28 14:51 | PC.SOCIAL ---
Discharge planning: grommet worker had a lengthy conversation with pt's son, Neil, today about hospice services. Neil says that he is still undecided about taking his mother off of IV fluids and antibiotics and moving to comfort cares and eventually hospice. He said he hopes to have a meaningful conversation with his mother about it today. For now she will remain in the hospital and continue to get IV fluids and antibiotics per the provider on duty. Social work to follow-up as needed.
--- NOTE | 2025-04-28 18:25 | PC.NURSE ---
End of Shift: Patient switches between pleasant and agitated/vulgar, but is cooperative with cares when everything is explained. Patient oriented to self and . Patient is vitally stable, lungs anteriorly course, lungs have been more course since she had a 75 ml emesis this morning, BS WNL, IV running D5LR at 125. Patient expressed pain once today without rating pain, requesting pain medicine, morphine 2mg given once. Patient otherwise declined pain but does yell ouch with palpation to the abdomen. Zophran 4 mg given once after emesis, patient has not had an emesis since but did retch once. Patient is taking in clear liquids well, and diaper has been changed x2 today. Patient declines blood sugar check, morning BS was 115. Patient's son expressed that the patient said she wants to know what her WBC is tomorrow and more than likely stop IV fluids/Abx. Patient has been resting well in bed today.
[2025-04-29] MEDS: 5 % DEXTROSE IN LAC RINGER'S 1,000 ML 125 ML IV ×2 (00:41→08:53)
[2025-04-29] MEDS: LEVOTHYROXINE 100 MCG TABLET PO (05:22)
[2025-04-29] MEDS: MORPHINE 4 MG/ML INJ IVP (05:22)
[2025-04-29] MEDS: PROCHLORPERAZINE 5 MG/ML VIAL IV (05:55)
[2025-04-29 07:00] VITALS: BP 128/68; PULSE 85; RESP 12; TEMP 36.8; O2SAT 99
[2025-04-29 07:02] LABS: Lactate* 1.5 mmol/L (0.5-1.9)
[2025-04-29 07:07] LABS: Hematocrit* 31.9 % (33.0-51.0); Hemoglobin* 10.0 gm/dL (12.0-16.0); Mean Corpuscular HGB Conc 31 gm/dL (32-36); Mean Corpuscular Hemoglobin 33 pg (26-34); Mean Corpuscular Volume 104 fL (80-100); Red Blood Count* 3.08 m/uL (4.00-5.20); White Blood Count* 13.55 K/uL (4.50-11.00)
[2025-04-29 07:19] LABS: Chloride* 118 mmol/L (96-114); Sodium* 142 mmol/L (135-149)
[2025-04-29 07:21] LABS: Potassium* 3.6 mmol/L (3.6-5.1)
[2025-04-29 07:22] LABS: Anion Gap 4 mEq/L (7-15); Carbon Dioxide* 20 mmol/L (20-32)
[2025-04-29 07:24] LABS: Blood Urea Nitrogen* 30 mg/dL (7-30); Calcium* 7.9 mg/dL (8.4-10.6); Creatinine* 1.5 mg/dL (0.5-1.5); Est. Creatinine Clearance* 21.07; Estimated Glomerular Filt Rate 34 ml/min; Glucose* 109 mg/dL (60-115)
[2025-04-29 07:27] LABS: Slide Review Reflex No
[2025-04-29] MEDS: ROSUVASTATIN CALCIUM 10 MG TABLET PO (09:31)
[2025-04-29] MEDS: SODIUM CHLORIDE 0.9 % (FLUSH) 10 ML SYRINGE 5 ML IVF (09:31)
[2025-04-29] MEDS: CLOPIDOGREL 75 MG TABLET PO (09:31)
--- NOTE | 2025-04-29 12:12 | PM.IMPN1 ---
Subjective Interval history: Patient's son, Neil, spoke with me first while Roshni was getting cares. He said that this morning she expressed anger that she was not yet. We had a good discussion about the severity of her current situation with sepsis and bacteremia, the results of blood cultures which grew out Staphylococcus and that if she did not want comfort cares, further investigation with an echocardiogram, possibly a MADISON, further blood cultures and a PICC line would be warranted. We also discussed the probability that this would happen again, but she had evidence of demand ischemia, and that her quality of life has been affected. He demonstrated understanding and wanted her to make the final decision. Exam Const: Vital Signs, click to edit/add: Vital Signs - 24 hr 04/28/25 15:03 04/28/25 15:03 04/28/25 19:00 Temperature 98.9 F 98.1 F Pulse Rate [Pulse Oximeter] 86 86 81 Respiratory Rate 12 12 16 Blood Pressure [Le ft Arm] 142/64 H 131/61 Pulse Oximetry 100 94 Oxygen Delivery Me thod Room Air Room Air 04/28/25 23:00 04/29/25 07:00 Temperature 98.3 F Pulse Rate [Pulse Oximeter] 81 85 Respiratory Rate 16 12 Blood Pressure [Le ft Arm] 128/68 Pulse Oximetry 99 Oxygen Delivery Me thod Room Air Labs Labs: Laboratory Results - last 24 hr 04/29/25 06:50 WBC 13.55 H RBC 3.08 L Hgb 10.0 L Hct 31.9 L MCV 104 H MCH 33 MCHC 31 L Plt Count 270 Sodium 142 Potassium 3.6 Chloride 118 H Carbon Dioxide 20 Anion Gap 4 L BUN 30 Creatinine 1.5 Estimated Creat Clear 21.07 Estimated GFR 34 Glucose 109 Lactate 1.5 Calcium 7.9 L C-Reactive Protein 6.4 H
--- NOTE | 2025-04-29 12:37 | P.DS_ITS ---
DS: Providers Provider Time Seen by Provider: 09:30 Date Seen: 04/29/25 Date of admission: 04/26/25 22:26 Primary care physician: Joe Subramanian MD Admitting Clinician: Kaela Johnson MD Consults: 04/26/25 23:29 Consult to Physician [CONS] Urgent Comment: Consulting Provider: Ramya Alonzo Has provider been notified: No Consult to Residential Insurance Inspector [CONS] Routine Comment: Reason for Consult:: Social Service Consult Attending Physician on discharge: Denita Smith MD Date of Discharge: 04/29/25 DS: Diagnosis Discharge Diagnosis (1) End of life care: Status: Acute Problem details: - 04/29 Patient's son, Neil, spoke with me first while Roshni was getting cares. He said that this morning she expressed anger that she was not yet. We had a good discussion about the severity of her current situation with sepsis and bacteremia, the results of blood cultures which grew out Staphylococcus and that if she did not want comfort cares, further investigation with an echocardiogram, possibly a MADISON, further blood cultures and a PICC line would be warranted. We also discussed the probability that this would happen again, but she had evidence of demand ischemia, and that her quality of life has been affected. He demonstrated understanding and wanted her to make the final decision. After her cares were finished, Neil and I went to speak with her. I spoke with her about what Neil and I discussed and gave her information about today's labs and what I would recommend if she wants to continue to treat versus what, specifically, comfort cares would look like for her, including stopping current treatments, stopping antibiotics, stopping IV fluids, doing fewer vital signs, no labs, no imaging or procedures, starting comfort medications as needed and having her return to [facility] with hospice if wanted. She stated that she wanted comfort cares. Her son expressed that they were concerned about whether or not she would be able to get pain medication if she asked for them and was feeling uncomfortable or if he noticed that she was feeling uncomfortable. I noted that we could get hospice involved for when she goes back to [facility] to ensure that her comfort is priority. They wanted that to be the case. She stated that she is still feeling some pain, especially with movement. I noted that we could increase her fentanyl patch to help with her current level of pain. She expressed liking that idea. She has not eaten anything while she has been here. She has not had any bowel movements. She thinks she does not want her medications, but wants to be able to change her mind later - Start comfort cares. Increase fentanyl. Stop IV antibiotics and IVF. Stop home meds (except those for comfort, omeprazole). I spoke with SW for d/ch planning back to [facility] with hospice. (2) Palliative care encounter: Status: Acute Problem details: Reviewed written documents and discussed with son who is designated healthcare power of teasel setter as well as grandson who is present today. Patient is been quite clear for the last 14 years that she does not want aggressive intervention to prolong life. That would include any surgery, ICU level life support, ventilator. She has also been very clear that she does not want to be in a senior living as she has been for the last few months. Discussing whether she would want any life prolonging treatment at this point. She definitely wants comfort measures to minimize pain. Continue to discuss with son/POA. He would like her to make the decision. She does not understand the question of life prolonging treatment with palliative care verses comfort care alone with hospice. Fentanyl patches started. - as above (3) Sepsis: Status: Acute Problem details: -leukocytosis with left shift, WBC 28.64, lactate 2.3 -> 1.3 following IVF, tachycardic, tachypneic, afebrile, acute kidney injury, type 2 SD. -suspect mesenteric ischemia. Son declines any surgical intervention. Seeking medical management with IV fluids and antibiotics. - as above (4) Mesenteric ischemia: Status: Acute Problem details: Likely the cause of acute illness. No surgical intervention. Discussing possibility of moving to comfort cares - as above (5) Bacteremia: Status: Acute Problem details: Gram-positive cocci in clusters. On vancomycin. - 04/29 Blood Culture* Preliminary ML Organism 1 Staphylococcus capitis Growth detected in Anaerobic bottle S capitis BLAIR RX --------- --- Ciprofloxacin <=0.5 S Clindamycin 0.25 S Doxycycline 2 S Erythromycin <=0.25 S Gentamicin <=0.5 S Levofloxacin 0.25 S * Oxacillin Blair <=0.25 S Rifampin <=0.5 S Tetracycline >=16 R Vancomycin <=0.5 S (6) Type 2 SD (myocardial infarction): Status: Acute Problem details: Elevated troponin likely due to type 2 SD, demand ischemia from acute illness and underlying chronic coronary disease - as above (7) Systolic congestive heart failure: Status: Acute Problem details: -monitor for fluid overload in management of sepsis - as above (8) Atherosclerotic heart disease of [place] coronary artery without angina pectoris: Status: Acute (9) Hemiplegia and hemiparesis following cerebral infarction affecting right dominant side: Status: Acute Problem details: -CVA 02/14 (10) Vascular dementia: Status: Acute Problem details: -with increased agitation following CVA in January -continue home medications -Barbara hood. Son, Neil, states patient has a POLST (reviewed) but no healthcare directive. We discussed that with her state of vascular dementia, as next of kin, he will need to help make decisions for her during this hospitalization as her understanding and comprehension as well as ability to retain the information that is provided to her is limited. He verbalizes understanding. As documented above, with myself and ED provider in attendance, plan is made for nonsurgical intervention, trial of IV antibiotics, monitoring, and possibly pursuing comfort cares if no improvement or worsening noted. (11) Type 2 diabetes mellitus: Status: Acute Problem details: -most recent A1c 5.7 -hold sitagliptin while NPO -glucose checks and insulin sliding scale ACHS - 04/29 as above (12) RC (acute kidney injury): Status: Acute Problem details: -creatinine on admission 2.5. Creatinine on 03/15/2025 was 1.4. Creatinine 1.8 on April 28. Prerenal versus ATN. (13) Vomiting: Status: Acute Problem details: Having occasional recurrent episodes. Using antiemetics. Likely having nausea as she is taking minimal p.o. fluid DS: Summary Hospital Course Hospital Course: Per H&P: Roshni Bourgeois is a 84 year old female past medical history significant for vascular dementia, type 2 diabetes mellitus, hypertension, hyperlipidemia, CKD stage IIIB, MDD, anxiety, sleep disorder, systolic heart failure, history of STEMI, nicotine dependence, recent CVA with hemiplegia and hemiparesis following cerebral infarct right dominant side and aphasia is admitted to the medical floor from the ED for further management sepsis with suspected source of acute abdomen. Patient is seen in the ED with son and ED provider at bedside. Patient is a poor historian. Reported that patient has had nausea with vomiting and abdominal pain since Friday of last week. Last emesis was 9:00 a.m. this morning. Unknown last BM. No reported fevers. In ED, patient reported to be not fully cooperative. Has taken some time to get IV access, labs, initiation of IV fluids and antibiotics. Significant leukocytosis noted with questionable small-bowel obstruction. ED provider discussed with General surgery, concern for ischemia, significant bowel infection. Would recommend transfer for any sort of surgical intervention. In discussing options with son, he tells us his mother would have never wanted surgical intervention. When asked herself, she says ?no? to surgery. Decision is made for admission for IV antibiotics, IV fluids, bowel rest. We did discuss comfort cares if new or worsening symptoms which son is in agreement with if necessary. Palliative discussions continued. Patient continued to receive IVF and antibiotics, per her and her son's wishes, until results of BC had come back, at which point she and her son decided that she would like to be comfort cares only and to return to [facility] on hospice. Time Spent with Patient Time attestation: Total time spent providing and/or coordinating discharge services: Today I spent 60 minutes seeing the patient and having end of life and comfort care dis cussions with the patient and her son, discharging the patient, reviewing Expanse and EPIC notes/diagnostics/labs, discussing the care plan with our care team that includes social work, PT/OT, pharmacy, RT, penitentiary and documenting my impressions and plan in the medical record. Exam Narrative: Exam Narrative: General: Awake, alert, oriented x3. No pallor. No jaundice. Oropharynx: Clear. Mucous membranes moist. Cardiovascular: Regular rate and rhythm. No murmurs, gallops, or rubs. Respiratory: Clear to auscultation bilaterally. No wheezes or crackles. Abdomen: Bowel sounds present. Mildly distended. Const: Vital Signs, click to edit/add: Vital Signs - 24 hr 04/28/25 15:03 04/28/25 15:03 04/28/25 19:00 Temperature 98.9 F 98.1 F Pulse Rate [Pulse Oximeter] 86 86 81 Respiratory Rate 12 12 16 Blood Pressure [Le ft Arm] 142/64 H 131/61 Pulse Oximetry 100 94 Oxygen Delivery Me thod Room Air Room Air 04/28/25 23:00 04/29/25 07:00 Temperature 98.3 F Pulse Rate [Pulse Oximeter] 81 85 Respiratory Rate 16 12 Blood Pressure [Le ft Arm] 128/68 Pulse Oximetry 99 Oxygen Delivery Me thod Room Air DS: Data Data Completed and Pending Completed studies during hospitalization: Ordering Physician: Fabiano Rajan M.D. Date of Service: 04/26/25 Procedure(s): XR chest 1V portable Accession Number(s): [id number] cc: Joe Subramanian M.D.; Fabiano Rajan M.D.~ For Patients: As a result of the Cures Act, medical imaging exams and procedure reports are released immediately into your electronic medical record. You may view this report before your referring provider. If you have questions, please contact your health care provider. INDICATION: : CHEST CONGESTION COMPARISON: None TECHNIQUE: One view(s) of the chest FINDINGS: The cardiomediastinal silhouette and pulmonary vasculature are unremarkable. There is no focal airspace consolidation, pleural effusion, or pneumothorax. No displaced fractures. IMPRESSION: No acute cardiopulmonary process. Dictated by Sanjiv Miguel MD @ 04/26/2025 3:17:14 PM (Electronically Signed) Ordering Physician: Fabiano Rajan M.D. Date of Service: 04/26/25 Procedure(s): CT chest abdomen pelv wo con Accession Number(s): [id number] cc: Joe Subramanian M.D.; Fabiano Rajan M.D.~ For Patients: As a result of the Cures Act, medical imaging exams and procedure reports are released immediately into your electronic medical record. You may view this report before your referring provider. If you have questions, please contact your health care provider. INDICATION: Mid abdominal pain, vomiting TECHNIQUE: CT chest, abdomen and pelvis acquired without contrast. COMPARISON: Same day chest radiograph. FINDINGS: CHEST: Cardiovascular structures: Heart size is normal. Thoracic aorta and main pulmonary artery are normal in caliber. Severe coronary artery calcifications. Mitral annular calcifications. Diffuse atherosclerotic calcification of the aorta and branches. Mediastinum and mirela: No mass or adenopathy. Prominent precarinal lymph node, possibly reactive. Lungs and pleura: Scattered pulmonary nodules are present, including a solid subpleural nodule in the anterior left upper lobe measuring 4 millimeters in size (series 3, image 29). Subpleural reticulation is present bilaterally, possibly reflecting underlying fibrosis. Dependent atelectasis. No pleural effusion or pneumothorax. Chest wall and axilla: No mass or adenopathy. Bones: No acute or suspicious osseous abnormality. ABDOMEN AND PELVIS: Liver: Unremarkable. Gallbladder and bile ducts: Prior cholecystectomy. Prominent extrahepatic bile ducts likely secondary to post cholecystectomy reservoir effect. Pancreas: Mild fatty infiltration. No peripancreatic inflammation. Spleen: Nonenlarged. Probable calcified granulomas. Adrenal glands: Thickened left adrenal gland without discrete nodule. Kidneys: Mildly atrophic in appearance. No hydronephrosis. GI tract: Multiple mildly prominent gas and fluid-filled loops of small bowel are present. There are fecalized contents within several loops of small bowel. No transition point seen. Colonic diverticulosis without acute diverticulitis. Vascular structures: Ectasia of the infrarenal abdominal aorta measuring approximally 2.7 centimeters in maximum dimension. Diffuse atherosclerotic disease. Lymph nodes: Unremarkable. Miscellaneous: Moderate-sized fat containing umbilical hernia. Soft tissue calcifications along the lower anterior abdominal wall and within the right gluteal subcutaneous tissues. No free air or significant free fluid. Pelvic Organs: Left bladder diverticulum. Bones: No acute or suspicious osseous abnormality. IMPRESSION: 1. Multiple prominent loops of small bowel are present, nondilated by size criteria and without evident transition point. Fecalized contents are present within a few small bowel loops consistent with slow intestinal transit. Findings may reflect ileus, but early partial small bowel obstruction is not excluded. 2. Incidental pulmonary nodules measuring up to 4 millimeters in size, which could be followed with optional CT chest without contrast in 12 months if the patient is at high risk of malignancy. Please note that all CT scans at this facility use dose modulation, iterative reconstruction, and/or weight-based dosing when appropriate to reduce radiation dose to as low as reasonably achievable. Dictated by Erica Berumen MD @ 04/26/2025 7:13:53 PM (Electronically Signed) Labs on day of discharge: Labs from last 24 hours 04/29/25 06:50 WBC 13.55 H RBC 3.08 L Hgb 10.0 L Hct 31.9 L MCV 104 H MCH 33 MCHC 31 L Plt Count 270 Sodium 142 Potassium 3.6 Chloride 118 H Carbon Dioxide 20 Anion Gap 4 L BUN 30 Creatinine 1.5 Estimated Creat Clear 21.07 Estimated GFR 34 Glucose 109 Lactate 1.5 Calcium 7.9 L C-Reactive Protein 6.4 H Preliminary micro results at discharge 04/26/25 21:15 Blood Culture - Preliminary Blood Staphylococcus capitis 04/26/25 19:20 Blood Culture - Preliminary Blood NO GROWTH AFTER 48 HOURS Discharge Plan Discharge Disposition: Xfer SNF Date of Admission: 04/26/25 22:26 Attending Provider on Discharge: Denita Smith Consulting Providers: Ramya Alonzo Primary Care Provider: Joe Subramanian Condition: Guarded Anticipated Discharge Date/Time: 04/29/25 13:09 Discharge Medications: New diphenhydramine HCl 25 mg Tablet 25 mg PO Q6H PRN (Reason: pruritis) Qty: 30 0RF Continued mirtazapine 15 mg tablet 15 mg PO HS pantoprazole 40 mg tablet,delayed release (DR/EC) 40 mg PO HS acetaminophen 500 mg tablet 1,000 mg PO DAILY PRN melatonin 3 mg capsule 3 mg PO HS PRN acetaminophen 500 mg tablet 1,000 mg PO TID BUTT CREAM 1 dose topical TID Rx Instructions: ZINC/HC/NYSTATIN 1-1-1 Discontinued aspirin 325 mg tablet 325 mg PO DAILY clopidogrel [Plavix] 75 mg tablet 75 mg PO DAILY donepezil [Aricept] 5 mg tablet 5 mg PO HS levothyroxine [Levo-T] 100 mcg tablet 100 mcg PO DAILY rosuvastatin [Crestor] 10 mg tablet 10 mg PO DAILY sertraline 50 mg tablet 50 mg PO HS tramadol 50 mg tablet 50 mg PO Q4H PRN nicotine 7 mg/24 hr patch 24 hour 1 patch transdermal DAILY sitagliptin 50 mg tablet 50 mg PO DAILY sennosides [Consuelo-darius] 8.6 mg tablet 8.6 mg PO BID tramadol 50 mg tablet 50 mg PO BID Discharge Orders: Discharge Order (Routine); Ordered 04/29/25 Ordered By: Denita Smith Additional Instructions: Admit to hospice Activity Level: No Restrictions Discharge Diet: Other Diet Detail: As tolerated Follow Up Appointments: Joe Subramanian MD [Primary Care Provider, Family Practice] Forms: [facility] Info Instructions Admit to: SNF Discharge Potential: Poor Length of Stay: 30-90 days Can use facility standing orders?: Yes Code Status: DNR/DNI Rehab Potential: Poor Oxygen: No Urinary Catheter: No Hospice Evaluate and Admit: Yes Orders are good >30 days: No Signature: Denita Smith MD
[2025-04-29] MEDS: MORPHINE 10 MG/0.5 ML ORAL SOLN PO (12:56)
--- NOTE | 2025-04-29 13:29 | PC.SOCIAL ---
Addendum entered by GAIL Mendez 04/29/25 13:59: Discharge planning: [facility] contact, if needed, is Marti #[phone]. Social work to follow-up as needed. Original Note: Discharge planning: Pt will be discharging back to [facility] today with [facility]. The pt will travel by non-emergent EMS due to being a ceiling/ivone lift. [facility] will plan to be at [facility] by 3pm for the intake appointment. Social work to follow-up as needed.
--- NOTE | 2025-04-29 14:12 | PC.NURSE ---
Patient pleasant and cooperative. Pain managed with medication see AUG. New fentanyl patches placed on right upper outer arm, old patch from left upper outer arm removed and disposed of with Ana LUND. T&R q2h, elevate feet with pillows. Barrier cream on bottom, left buttocks with ismael sized area of dry skin peeling and no drainage/blood noted. Nurse to nurse given to September RN @ [facility], informed staff of time placed and location of x2 fentanyl patch on right arm. Poor appetite, bites of toast and sips of broth.
== END 2025-04-29 14:48 | disposition hospice, inpatient (51) | DRG 871 ==
LOC: ED 22:39 → MEDSURG 23:15
PROVIDERS: Family Medicine; Admitting Provider Physician Assistant; Emergency Provider Family Medicine; PCP Family Medicine; Visit Provider Family Medicine
DX: A41.1 Sepsis due to other specified staphylococcus (principal); I21.A1 Myocardial infarction type 2; K55.059 Acute (reversible) ischemia of intestine, part and extent unspecified; N17.9 Acute kidney failure, unspecified; F01.511 Vascular dementia, unspecified severity, with agitation; I69.351 Hemiplegia and hemiparesis following cerebral infarction affecting right dominant side; I13.0 Hypertensive heart and chronic kidney disease with heart failure and stage 1 through stage 4 chronic kidney disease, or unspecified chronic kidney disease; I50.22 Chronic systolic (congestive) heart failure; E11.22 Type 2 diabetes mellitus with diabetic chronic kidney disease; N18.32 Chronic kidney disease, stage 3b; I69.320 Aphasia following cerebral infarction; R91.8 Other nonspecific abnormal finding of lung field; F32.9 Major depressive disorder, single episode, unspecified; D64.9 Anemia, unspecified; F41.9 Anxiety disorder, unspecified; Z51.5 Encounter for palliative care; I25.10 Atherosclerotic heart disease of native coronary artery without angina pectoris; I25.2 Old myocardial infarction; E78.5 Hyperlipidemia, unspecified
CPT/HCPCS: 36415; 71045; 71250; 74176; 80048; 80076; 81001; 82803; 82962; 83605; 83735; 84100; 84443; 84484; 85025; 85027; 86140; 87040; 87081; 87086; 87186; 87631; 87800; 93005; 94761; 99284; 99291; 99292; A9270; J0780; J1650; J2185; J2270; J2405; J2470; J3360; J3375; J3475; J3480; J7030

== ENCOUNTER 2025-04-29 14:51 | Outpatient (CLI) | payer MEDICARE, BC, SELFPAY | END 2025-04-29 14:52 | disposition home or self-care (01) | LOC: AMB 05-24 08:20 | PROVIDERS: PCP Family Medicine; Visit Provider Internal Medicine | DX: F03.90 Unspecified dementia, unspecified severity, without behavioral disturbance, psychotic disturbance, mood disturbance, and anxiety (principal); J43.9 Emphysema, unspecified; Z51.5 Encounter for palliative care | CPT/HCPCS: A0425; A0428 ==